=== PATIENT | male | born 1950 | race Caucasian/White ===

== ENCOUNTER 2018-04-16 09:31 | Emergency (ER) | payer OTHER ==
--- OUTSIDE RECORDS SUMMARY | 2018-04-16 09:33 | XMS REPORT ---
:1950 Author Organization [employer] Care Team Providers Name Role Phone Lux Mejia Provider Role Unavailable Allergies, Adverse Reactions, Alerts Substance Reaction Event Type N.K.D.A. 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 63910610050 425 MG Oral Active TAKE ONE ER CAPSULE BY MOUTH EVERY [address] [facility] 27577795123 5 MG Oral Active TAKE 1 Besylate TABLET EVERY DAY IN AFTERNOON Atorvastatin [facility] 55282137657 10 MG Oral Active TAKE 1 Calcium TABLET BY MOUTH EVERY DAY Pradaxa [facility] 41652044968 150 MG Oral Active TAKE ONE CAPSULE BY MOUTH TWICE A DAY Duloxetine HCl [facility] 15984938546 30 MG Oral Active TAKE 1 CAPSULE BY MOUTH TWICE A DAY Metoprolol [facility] 21604903114 25 MG Oral Active TAKE 1 Tartrate TABLET BY MOUTH TWICE A DAY Results No Known Results Summary Purpose e[employer]Works Submission
--- NOTE | 2018-04-16 10:53 | EDPHYS ---
Physician Documentation [facility] Name: Jani Taylor III Age: 67 yrs Sex: Male : 1950 Arrival Date: 04/16/2018 Time: 09:33 Bed 15 Private MD: Isidoro Helton C ED Physician Shmuel Ware HPI: 04/16 10:17 This 67 yrs old Male presents to ER via Ambulatory with complaints of Eye kdr Problem. 10:17 The patient is experiencing floaters. Onset: The symptoms/episode began/occurred last kdr night. Duration: the symptoms are intermittent, are episodic. Aggravated by Movement. Associated signs and symptoms: Pertinent positives: None. Pertinent negatives: chills, dizziness, ear ache, fever, headache, runny nose. Patient wears glasses. Severity of symptoms: At their worst the symptoms were mild in the emergency department the symptoms are unchanged. The patient has not experienced similar symptoms in the past. The patient has not recently seen a physician. Historical: - Allergies: 09:41 No Known Allergies; rb1 - Home Meds: 09:41 atorvastatin 10 mg oral tab 1 tab once daily [Active]; metoprolol tartrate 25 mg Oral rb1 tab 1 tab 2 times per day [Active]; imipramine HCl 25 mg Oral tab 2 tabs bedtime [Active]; propafenone 425 mg Oral cp12 1 cap 2 times per day [Active]; Pradaxa 150 mg oral cap 1 cap 2 times per day [Active]; amlodipine 5 mg tab 1 tab once daily [Active]; duloxetine 30 mg oral cpDR 1 cap once daily [Active]; Vitamin B-12 Oral [Active]; Vitamin D3 oral oral [Active]; Melatonin 7 mg Oral nightly [Active]; - PMHx: 09:41 High Cholesterol; Hypertension; rb1 - PSHx: 09:41 Bunionectomy; Mutliple orthopedic surgeries as child; wisdom teeth; rb1 - Immunization history:: Adult Immunizations up to date. - Social history:: Smoking status: Patient/guardian denies using tobacco. - Ebola Screening: : Patient negative for fever greater than or equal to 101.5 degrees Fahrenheit, and additional compatible Ebola Virus Disease symptoms. ROS: 10:17 Constitutional: Negative for fever, chills, and weight loss, ENT: Negative for injury, kdr pain, and discharge, Neck: Negative for injury, pain, and swelling, Neuro: Negative for headache, weakness, numbness, tingling, and seizure activity. Exam: 10:17 Constitutional: This is a well developed, well nourished patient who is awake, alert, kdr and in no acute distress. Head/Face: Normocephalic, atraumatic. Neck: Trachea midline, no thyromegaly or masses palpated, and no cervical lymphadenopathy. Supple, full range of motion without nuchal rigidity, or vertebral point tenderness. No Meningismus. 10:17 Eyes: Periorbital structures: appear normal, Pupils: equal, round, and reactive to light and accomodation, Extraocular movements: intact throughout, Corneas: are normal, Sclera: no appreciated abnormality, Anterior chamber: normal, Lids and lashes: appear normal, Visual hill: are intact. Vital Signs: 09:41 BP 124 / 77; Pulse 62; Resp 16; Temp 98.1(O); Pulse Ox 98% on R/A; Weight 86.18 kg; rb1 Height 5 ft. 10 in. (177.80 cm) (R); Pain 0/10; 10:40 BP 129 / 72; Pulse 67; Resp 17; Pulse Ox 100% on R/A; rb1 09:41 Body Mass Index 27.26 (86.18 kg, 177.80 cm) rb1 Visual Acuity: 10:19 Left Eye Visual acuity 20/25, Pupil size 3 mm, Normal; Right Eye Visual acuity 20/20, rb1 Pupil size 3 mm, Normal; Both Eyes Visual acuity 20/25; With Lenses; MDM: 10:17 ED course: By US, the patient may have retinal detachment in the OS. ED course: Called [facility] Dr. Salas twice with NA/ LM x 1 at 10:15. D/w Dr. Tai Wolfe, patient condition is urgent but not emergent per Dr. Gerardo. Could be seen in clinic on Wednesday. [facility]: OD 20/20; OS 20/25 corrected. 10:49 Data reviewed: vital signs, nurses notes. Counseling: I had a detailed discussion with kdr the patient and/or guardian regarding: the historical points, exam findings, and any diagnostic results supporting the discharge/admit diagnosis, the need for outpatient follow up. ED course: D/w Dr. Thompson: CHUN Hernandez: Non-emergent can follow-up in clinic unless and significant changes indicative of retinal detachment. Gave his contact information: [phone], [id number]. 10:53 Patient medically screened. kdr Administered Medications: No medications were administered Disposition: 04/16/18 10:53 Discharged to Home. Impression: Other retinal disorders, Other specified retinal disorders, Unspecified retinal disorder. - Condition is Stable. - Discharge Instructions: Retinal Detachment. - Medication Reconciliation Form, Thank You Letter form. - Follow up: Isidoro Helton MD; When: 2 - 3 days; Reason: If symptoms return, Further diagnostic work-up, Recheck today's complaints, Continuance of care, Re-evaluation by your physician. Follow up: Juana Salas MD; When: 1 - 2 days; Reason: If symptoms return, Further diagnostic work-up, Recheck today's complaints, Continuance of care, Re-evaluation by your physician. - Problem is new. - Symptoms are unchanged. Signatures: Shmuel Ware MD MD kdr Екатерина Corbett RN RN rb1 Corrections: (The following items were deleted from the chart) 11:09 10:53 04/16/2018 10:53 Discharged to Home. Impression: Other retinal disorders; Other rb1 specified retinal disorders; Unspecified retinal disorder. Condition is Stable. Forms are Medication Reconciliation Form, Thank You Letter, Antibiotic Education, Prescription Opioid Use. Follow up: Isidoro Helton; When: 2 - 3 days; Reason: If symptoms return, Further diagnostic work-up, Recheck today's complaints, Continuance of care, Re-evaluation by your physician. Follow up: Juana Salas; When: 1 - 2 days; Reason: If symptoms return, Further diagnostic work-up, Recheck today's complaints, Continuance of care, Re-evaluation by your physician. Problem is new. Symptoms are unchanged. kdr
--- NOTE | 2018-04-16 10:53 | ER ---
Nurse's Notes [facility] Name: Jani Taylor III Age: 67 yrs Sex: Male : 1950 Arrival Date: 04/16/2018 Time: 09:33 Bed 15 Private MD: Isidoro Helton C Diagnosis: Other retinal disorders;Other specified retinal disorders;Unspecified retinal disorder Presentation: 04/16 09:41 Presenting complaint: Patient states: Last night pt. noticed a floater in his left eye rb1 and is concerned that he may have a torn retina. Transition of care: patient was not received from another setting of care. Onset of symptoms was April 15, 2018. Risk Assessment: Do you want to hurt yourself or someone else? Patient reports no desire to harm self or others. Initial Sepsis Screen: Does the patient meet any 2 criteria? No. Patient's initial sepsis screen is negative. Does the patient have a suspected source of infection? No. Patient's initial sepsis screen is negative. Care prior to arrival: None. 09:41 Method Of Arrival: Ambulatory rb1 09:41 Acuity: KYLE 3 rb1 Triage Assessment: 09:41 General: Appears in no apparent distress. comfortable, Behavior is calm, cooperative, rb1 Denies fever, feeling ill. Pain: Denies pain. EENT: Eyes pt. complains of a floater in the left eye, no discharge noted.. Denies pain vision loss.. Neuro: Level of Consciousness is awake, alert, obeys commands, Oriented to person, place, time, situation. Cardiovascular: Capillary refill < 3 seconds is brisk in bilateral fingers. Respiratory: Airway is patent Respiratory effort is even, unlabored, Respiratory pattern is regular, symmetrical. GI: No signs and/or symptoms were reported involving the gastrointestinal system. : No signs and/or symptoms were reported regarding the genitourinary system. Derm: Skin is pink, warm \T\ dry. Musculoskeletal: Range of motion: intact in all extremities. Historical: - Allergies: : No Known Allergies; rb1 - Home Meds: : atorvastatin 10 mg oral tab 1 tab once daily [Active]; metoprolol tartrate 25 mg Oral rb1 tab 1 tab 2 times per day [Active]; imipramine HCl 25 mg Oral tab 2 tabs bedtime [Active]; propafenone 425 mg Oral cp12 1 cap 2 times per day [Active]; Pradaxa 150 mg oral cap 1 cap 2 times per day [Active]; amlodipine 5 mg tab 1 tab once daily [Active]; duloxetine 30 mg oral cpDR 1 cap once daily [Active]; Vitamin B-12 Oral [Active]; Vitamin D3 oral oral [Active]; Melatonin 7 mg Oral nightly [Active]; - PMHx: 09:41 High Cholesterol; Hypertension; rb1 - PSHx: :41 Bunionectomy; Mutliple orthopedic surgeries as child; wisdom teeth; rb1 - Immunization history:: Adult Immunizations up to date. - Social history:: Smoking status: Patient/guardian denies using tobacco. - Ebola Screening: : Patient negative for fever greater than or equal to 101.5 degrees Fahrenheit, and additional compatible Ebola Virus Disease symptoms. Screenin: Abuse screen: Denies threats or abuse. Nutritional screening: No deficits noted. rb1 Tuberculosis screening: No symptoms or risk factors identified. Fall Risk None identified. Assessment: : General: See triage assessment. rb1 10:40 Reassessment: Patient appears in no apparent distress at this time. No changes from rb1 previously documented assessment. Vital Signs: 09: BP 124 / 77; Pulse 62; Resp 16; Temp 98.1(O); Pulse Ox 98% on R/A; Weight 86.18 kg; rb1 Height 5 ft. 10 in. (177.80 cm) (R); Pain 0/10; 10:40 BP 129 / 72; Pulse 67; Resp 17; Pulse Ox 100% on R/A; rb1 09:41 Body Mass Index 27.26 (86.18 kg, 177.80 cm) rb1 Visual Acuity: 10:19 Left Eye Visual acuity 20/25, Pupil size 3 mm, Normal; Right Eye Visual acuity 20/20, rb1 Pupil size 3 mm, Normal; Both Eyes Visual acuity 20/25; With Lenses; ED Course: Patient arrived in ED. as : Isidoro Helton MD is Private Physician. as : Екатерина Corbett, ASHVIN is Primary Nurse. rb1 09: Arm band placed on right wrist. rb1 : Patient has correct armband on for positive identification. Bed in low position. Call rb1 light in reach. Side rails up X 1. Pulse ox on. NIBP on. Warm blanket given. 09:42 Shmuel Ware MD is Attending Physician. kdr 10:03 Triage completed. rb1 10:51 Isidoro Helton MD is Referral Physician. kdr 10:52 Juana Salas MD is Referral Physician. kdr 11:09 No provider procedures requiring assistance completed. Patient did not have IV access rb1 during this emergency room visit. Administered Medications: No medications were administered Outcome: 10:53 Discharge ordered by . kdr 11:09 Patient left the ED. rb1 11:09 Discharged to home ambulatory. rb1 11:09 Condition: stable 11:09 Discharge instructions given to patient, Instructed on discharge instructions, follow up and referral plans. Demonstrated understanding of instructions, follow-up care, Prescriptions given X none Signatures: Shmuel Ware MD MD kdr Guillermina Hennessy Rebecca, RN RN rb1 Corrections: (The following items were deleted from the chart) 10:38 09:41 BP 124 / 77; Pulse 62bpm; Resp 16bpm; Pulse Ox 98% RA; 86.18 kg; Height 5 ft. 10 rb1 in. Reported; BMI: 27.2; Pain 0/10; rb1
[2018-04-16 11:14] VITALS: BP 124/77; TEMP 98.1; O2SAT 98
== END 2018-04-16 11:09 | disposition home or self-care (01) ==
LOC: ER 09:31
DX: H35.89 Other specified retinal disorders (principal); I10 Essential (primary) hypertension; E78.00 Pure hypercholesterolemia, unspecified
CPT/HCPCS: 99283

== ENCOUNTER 2022-08-30 16:41 | Inpatient (IN) | payer OTHER ==
--- OUTSIDE RECORDS SUMMARY | 2022-08-30 16:48 | XMS REPORT | Continuity of Care Document ---
:1950 Author Organization [facility] t Address [address] [place] [address] Care Team Providers Name Role Phone Gabo Helton Primary Care Physician Gabo Helton Attending Clinician Unavailable PATY BARAJAS Attending Clinician Unavailable Johnson Delgado MD Attending Clinician Dillon Attending Clinician Unavailable Shaun Hastings Attending Clinician Unavailable JOHNSON DELGADO Attending Clinician Unavailable JOHNSON DELGADO Attending Clinician Unavailable Doctor Unassigned, [place] Attending Clinician Unavailable KELSEY SIMPSON Attending Clinician Unavailable FRANKLYN MEEHAN M.D. Attending Clinician Unavailable Dillon Admitting Clinician Unavailable Shaun Hastnigs Admitting Clinician Unavailable Payers Payer Name Policy Type Policy Number Effective Date Expiration Date S alfonso [employer]ET[employer] MANAGED [id number] 2021 MEDICARE PPO-TRACI 00:00:00 [employer]ETNA (MEDICARE [id number] 2022 REPLACEMENT PPO) 00:00:00 [employer]ET[employer] MEDICARE C1 [id number] Common PPO [facility] Problems Condition Condition Condition Status Onset Resolution Last Treating Co mments Source Name Details Category Date Date Treatment Clinician Date Metatarsal Metatarsal Problem Active A zalea [facility] of 1-20 Orthope left foot Left Foot 00:00: dic 00 Sports Medic[facility] Talipes Talipes Problem Active Samantha planus Planus 1-20 Orthope 00:00: dic 00 Sports Medicin e 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 00:00: dic valgus Valgus 00 Sports Medicin e Exostosis Exostosis Problem Active Aza júnior of right of Right 1-20 Orthop e foot Foot 00:00: dic 00 Sports Medicin e 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 Allergies, Adverse Reactions, Alerts Allergy Allergy Status Severity Reaction(s) Onset Inactive Treating Comm ents Source Name Type Date Date Clinician No Known DA Active U 2017-06 [facility] Allergie 06-16 [place] [facility] 00:[facility]: L[place] 00 [facility] No Known DA Active U 2017-06 [facility] Allergie 06-16 [place] [facility] 00:[facility]: [facility] 00 [facility] NO KNOWN Drug Active Univers ALLERGIE Class ity of S [facility] Non-ster Non-ster Active Unknown Commo n oidal oidal Spirit anti-inf anti-inf - [facility] lammator lammator y agent y agent [facility] aluminum aluminum Active Unknown Commo n aspirin aspirin [facility] Social History Social Habit Start Date Stop Date Quantity Comments Source History of Common [facility] - Tobacco Use [facility] Sex Assigned At Common Sp tony - [facility] History SDOH University o f Alcohol Frequency [place] [facility] History SDOH University o f Alcohol Std [place] [facility] Drinks Branch History SDOH University o f Alcohol Binge [place] [facility] al [facility] Exposure to 2022-06-05 2022-06-15 Not sure University of SARS-CoV-2 00:00:00 09:03:00 [place] [facility] (event) Branch Alcohol intake 2022-01-21 2022-01-21 Current drinker Unive rsity of 00:00:00 00:00:00 of alcohol [place] [facility] (finding) Branch Alcohol Comment 2018-11-04 2018-11-04 Occasional Universit y of 00:00:00 00:00:00 Drinker [facility] Tobacco use and 2017-11-22 2017-11-22 Smokeless tobacco Un iversity of exposure 00:00:00 00:00:00 non-user [facility] Smoking Status Start Date Stop Date Source Former Smoker Samantha easley [facility] Medications Ordered Filled Start Stop Current Ordering Indication Dosage Frequency Signature Comments Components Source Medication Medication Date Date Medication? Clinician (SIG) Name Name TRAZODONE Yes [id number] TAKE 1 U nivers 50 mg 3-07 TABLET BY ity of tablet 00:00: MOUTH [place] 00 EVERYDAY Medical AT BEDTIME Branch TRAZODONE Yes [id number] TAKE 1 U nivers 50 mg 3-07 TABLET BY ity of tablet 00:00: MOUTH [place] EVERYDAY Medical AT BEDTIME Branch TRAZODONE 0 Yes [id number] TAKE 1 U nivers 50 mg 3-07 TABLET BY ity of tablet 00:00: MOUTH [place] 00 EVERYDAY Medical AT BEDTIME Branch traZODone 2021-06 Yes [id number] 50mg Take 1 U nivers 50 mg 2-07 tablet by ity of tablet 00:00: mouth at [place] [address] bedtime. Medical Branch traZODone 2021-06 Yes [id number] 50mg Take 1 U nivers 50 mg 2-07 tablet by ity of tablet 00:00: mouth at [place] [address] bedtime. Medical Branch traZODone 2021-06 Yes [id number] 50mg Take 1 U nivers 50 mg 2-07 tablet by ity of tablet 00:00: mouth at [place] 00 bedtime. Medical Branch traZODone 2021-06 Yes [id number] 50mg Take 1 U nivers 50 mg 2-07 tablet by ity of tablet 00:00: mouth at [place] 00 bedtime. Medical Branch traZODone 2021-06 Yes [id number] 50mg Take 1 U nivers 50 mg 2-07 tablet by ity of tablet 00:00: mouth at [place] 00 bedtime. Medical Branch traZODone 2021-06 2023- No [id number] 50mg Take 1 Univers 50 mg 2-07 03-07 tablet by ity of tablet 00:00: 00:00 mouth at [place] 00 :00 bedtime. Medical Branch DENTAGEL 2021-06 Yes APPLY TO Unive rs 1.1 % Gel 2-04 TOOTHBRUSH ity of 00:00: & BRUSH [place] 00 NIGHTLY. Medical DO NOT EAT Branch OR DRINK FOR 30 MINUTES AFTERWARDS finasteride 2021-06 Yes 5mg Take 5 mg U nivers 5 mg tablet 2-04 by mouth ity of 00:00: in the [place] morning. Medical Branch DENTAGEL 2021-06 Yes APPLY TO Unive rs 1.1 % Gel 2-04 TOOTHBRUSH ity of 00:00: & BRUSH [place] 00 NIGHTLY. Medical DO NOT EAT Branch OR DRINK FOR 30 MINUTES AFTERWARDS finasteride 2021-06 Yes 5mg Take 5 mg U nivers 5 mg tablet 2-04 by mouth ity of 00:00: in the [place] morning. Medical Branch DENTAGEL 2021-06 Yes APPLY TO Unive rs 1.1 % Gel 2-04 TOOTHBRUSH ity of 00:00: & BRUSH [place] 00 NIGHTLY. Medical DO NOT EAT Branch OR DRINK FOR 30 MINUTES AFTERWARDS finasteride 2021-06 Yes 5mg Take 5 mg U nivers 5 mg tablet 2-04 by mouth ity of 00:00: in the morning. Medical Branch DENTAGEL 2021-06 Yes APPLY TO Unive rs 1.1 % Gel 2-04 TOOTHBRUSH ity of 00:00: & BRUSH [place] 00 NIGHTLY. Medical DO NOT EAT Branch OR DRINK FOR 30 MINUTES AFTERWARDS finasteride 2021-06 Yes 5mg Take 5 mg U nivers 5 mg tablet 2-04 by mouth ity of 00:00: in the [place] morning. Medical Branch DENTAGEL 2021-06 Yes APPLY TO Unive rs 1.1 % Gel 2-04 TOOTHBRUSH ity of 00:00: & BRUSH [place] 00 NIGHTLY. Medical DO NOT EAT Branch OR DRINK FOR 30 MINUTES AFTERWARDS finasteride 2021-06 Yes 5mg Take 5 mg U nivers 5 mg tablet 2-04 by mouth ity of 00:00: in the [place] 00 morning. Medical Branch DENTAGEL 2021-06 Yes APPLY TO Unive rs 1.1 % Gel 2-04 TOOTHBRUSH ity of 00:00: & BRUSH [place] 00 NIGHTLY. Medical DO NOT EAT Branch OR DRINK FOR 30 MINUTES AFTERWARDS finasteride 2021-06 Yes 5mg Take 5 mg U nivers 5 mg tablet 2-04 by mouth ity of 00:00: in the [place] morning. Medical Branch DULoxetine Yes [id number] 30mg Take 1 Univers 30 mg 8-09 capsule by ity of capsule 00:00: mouth in [place] the Medical morning Branch and 1 capsule in the evening. rivastigmin 2021- Yes [id number] 1{patch Apply 1 Univers e 9.5 mg/24 8-09 } Patch to ity of hour patch 00:00: skin in [place] [address] the morning. Branch DULoxetine 2021- Yes [id number] 30mg Take 1 Univers 30 mg 8-09 capsule by ity of capsule 00:00: mouth in [place] the Medical morning Branch and 1 capsule in the evening. rivastigmin 2021-0 Yes [id number] 1{patch Apply 1 Univers e 9.5 mg/24 8-09 } Patch to ity of hour patch 00:00: skin in [facility] 00 the morning. Branch DULoxetine 2021- Yes [id number] 30mg Take 1 Univers 30 mg 8-09 capsule by ity of capsule 00:00: mouth in [place] the Medical morning Branch and 1 capsule in the evening. rivastigmin 2021-0 Yes [id number] 1{patch Apply 1 Univers e 9.5 mg/24 8-09 } Patch to ity of hour patch 00:00: skin in [place] [address] the morning. Branch DULoxetine 2021- Yes [id number] 30mg Take 1 Univers 30 mg 8-09 capsule by ity of capsule 00:00: mouth in [place] the Medical morning Branch and 1 capsule in the evening. rivastigmin 2-0 Yes [id number] 1{patch Apply 1 Univers e 9.5 mg/24 8-09 } Patch to ity of hour patch 00:00: skin in [place] [address] the morning. Branch DULoxetine 2021-0 Yes [id number] 30mg Take 1 Univers 30 mg 8-09 capsule by ity of capsule 00:00: mouth in [place] [address] the morning Branch and 1 capsule in the evening. rivastigmin 2-0 Yes [id number] 1{patch Apply 1 Univers e 9.5 mg/24 8-09 } Patch to ity of hour patch 00:00: skin in [place] [address] the morning. Branch DULoxetine 2021-0 Yes [id number] 30mg Take 1 Univers 30 mg 8-09 capsule by ity of capsule 00:00: mouth in [place] [address] the Branch and 1 capsule in the evening. rivastigmin 2021-0 Yes [id number] 1{patch Apply 1 Univers e 9.5 mg/24 8-09 } Patch to ity of hour patch 00:00: skin in [place] [address] the . Branch DULoxetine 2021-0 Yes [id number] 30mg Take 1 Univers 30 mg 8-09 capsule by ity of capsule 00:00: mouth in [place] [address] the morning Branch and 1 capsule in the evening. rivastigmin 2021-0 Yes [id number] 1{patch Apply 1 Univers e 9.5 mg/24 8-09 } Patch to ity of hour patch 00:00: skin in [place] [address] the . Branch DULoxetine 2021-0 Yes [id number] 30mg Take 1 Univers 30 mg 8-09 capsule by ity of capsule 00:00: mouth in [place] [address] the morning Branch and 1 capsule in the evening. rivastigmin 2-0 Yes [id number] 1{patch Apply 1 Univers e 9.5 mg/24 8-09 } Patch to ity of hour patch 00:00: skin in [place] [address] the morning. Branch DULoxetine 2021-0 Yes [id number] 30mg Take 1 Univers 30 mg 8-09 capsule by ity of capsule 00:00: mouth in [place] [address] the morning Branch and 1 capsule in the evening. rivastigmin 2-0 Yes [id number] 1{patch Apply 1 Univers e 9.5 mg/24 8 } Patch to ity of hour patch 00:00: [place] 00 the Medical morning. Branch RIVASTIGMIN 2021- No 1{patch APPLY 1 Univers E 9.5 mg/24 10-08 0809 } PATCH TO ity of hour patch 00:00: 00:00 SKIN [place] 00 :00 DAILY. Medical Branch DULOXETINE 2021- No [id number] TAKE 1 Univers 30 mg 3-17 08- CAPSULE BY ity of capsule 00:00: 00:00 MOUTH [place] 00 :00 TWICE A Medical DAY Branch TRAZODONE 2020-06 Yes [id number] TAKE 1 U nivers 50 mg 2-14 TABLET BY ity of tablet 00:00: MOUTH [place] 00 EVERYDAY Medical AT BEDTIME Branch TRAZODONE 2020-06- No [id number] TAKE 1 Univers 50 mg 2-14 12-07 TABLET BY ity of tablet 00:00: 00:00 MOUTH [place] 00 :00 EVERYDAY Medical AT BEDTIME Branch Bupivicaine Bupivicaine 2020-06 No 2.5mg Common [place] 0-05 [facility] No 40mg Common (Triamcinol (Triamcinol 0-05 S pirit one) one) 00:00: - [facility] Bupivicaine Bupivicaine 2020-06 No Common [place] Aurora 0-05 Spirit [facility]06 No 40mg Common (Triamcinol (Triamcinol 0-05 S pirit one) one) 00:00: - [facility] Bupivicaine Bupivicaine 2020-06 No 2.5mg Common [place] Aurora 0-05 Spirit 00:00: - [facility] Kenalog Kenalog 2020-06 No 40mg Common (Triamcinol (Triamcinol 0-05 S pirit one) one) 00:00: - [facility] Bupivicaine Bupivicaine 2020-06 No 2.5mg Common [place] Aurora 0-05 Spirit 00:00: - [facility] Kenalog Kenalog 2020-06 No 40mg Common (Triamcinol (Triamcinol 0-05 S pirit one) one) 00:00: - [facility] melatonin 2019-0 Yes Take 1 Univer s 10 mg Tab 5-12 TAB-CAP/M2 ity of 11:41: by mouth [place] 08 at bedtime Medical as needed. Branch melatonin 0 Yes Take 1 Univer s 10 mg Tab 5-12 TAB-CAP/M2 ity of 11:41: by mouth [place] 08 at bedtime Medical as needed. Branch melatonin 0 Yes Take 1 Univer s 10 mg Tab 5-12 TAB-CAP/M2 ity of 11:41: by mouth [place] 08 at bedtime Medical as needed. Branch melatonin Yes Take 1 Univer s 10 mg Tab 5-12 TAB-CAP/M2 ity of 11:41: by mouth [place] 08 at bedtime Medical as needed. Branch melatonin Yes Take 1 Univer s 10 mg Tab 5-12 TAB-CAP/M2 ity of 11:41: by mouth [place] 08 at bedtime Medical as needed. Branch melatonin Yes Take 1 Univer s 10 mg Tab 5-12 TAB-CAP/M2 ity of 11:41: by mouth [place] 08 at bedtime Medical as needed. Branch melatonin 0 Yes Take 1 Univer s 10 mg Tab 5-12 TAB-CAP/M2 ity of 11:41: by mouth [place] 08 at bedtime Medical as needed. Branch melatonin Yes Take 1 Univer s 10 mg Tab 5-12 TAB-CAP/M2 ity of 11:41: by mouth [place] 08 at bedtime Medical as needed. Branch melatonin 0 Yes Take 1 Univer s 10 mg Tab 5-12 TAB-CAP/M2 ity of 11:41: by mouth [place] 08 at bedtime Medical as needed. Branch metoprolol 2018-06 Yes 25mg Take 25 mg U nivers tartrate 25 1-11 by mouth 2 it y of mg tablet 11:49: (two) [place] 58 times Medical daily. Branch PROPAFENONE 2018-06 Yes 425mg Take 425 U nivers HCL 1-11 mg by ity of (PROPAFENON 11:49: mouth [place] E ORAL) 58 every 12 Medical (twelve) Branch hours. cyanocobala 2018-06 Yes 1{tbl} Place 1 U nivers min, 1-11 tablet ity of vitamin 11:49: under the [place] B-12, 58 tongue Medical (VITAMIN daily. [place] [address]) 5,000 mcg Subl dextrose-vi 2018-06 Yes 1{tbl} Take 1 Un [place] tamin D3 1-11 tablet by ity of 15-400 11:49: mouth [place] gram-unit/4 58 daily. Medica l 2 mL Gel Branch ferrous 2018-06 Yes 1{tbl} Take 1 Univer s fumarate/vi 1-11 tablet by ity of t Bcomp,C 11:49: mouth [place] (SUPER B 58 daily. Medical COMPLEX Branch ORAL) metoprolol 2018-06 Yes 25mg Take 25 mg U nivers tartrate 25 1-11 by mouth 2 it y of mg tablet 11:49: (two) [place] 58 times Medical daily. Branch PROPAFENONE 2018-06 Yes 425mg Take 425 U nivers HCL 1-11 mg by ity of (PROPAFENON 11:49: mouth [place] E ORAL) 58 every 12 Medical (twelve) Branch hours. cyanocobala 2018-06 Yes 1{tbl} Place 1 U nivers min, 1-11 tablet ity of vitamin 11:49: under the , 58 tongue Medical (VITAMIN daily. [place] [address]) 5,000 mcg Subl dextrose-vi 2018-06 Yes 1{tbl} Take 1 Un [place] tamin D3 1-11 tablet by ity of 15-400 11:49: mouth [place] gram-unit/4 58 daily. Medica l 2 mL Gel Branch ferrous 2018-06 Yes 1{tbl} Take 1 Univer s fumarate/vi 1-11 tablet by ity of t Bcomp,C 11:49: mouth [place] (SUPER B 58 daily. Medical COMPLEX Branch ORAL) metoprolol 2018-06 Yes 25mg Take 25 mg U nivers tartrate 25 1-11 by mouth 2 it y of mg tablet 11:49: (two) [place] 58 times Medical daily. Branch PROPAFENONE 2018-06 Yes 425mg Take 425 U nivers HCL 1-11 mg by ity of (PROPAFENON 11:49: mouth [place] E ORAL) 58 every 12 Medical (twelve) Branch hours. cyanocobala 2018-06 Yes 1{tbl} Place 1 U nivers min, 1-11 tablet ity of vitamin 11:49: under the [place] B-12, 58 tongue Medical (VITAMIN daily. [place] [address]) 5,000 mcg Subl dextrose-vi 2018-06 Yes 1{tbl} Take 1 Un [place] tamin D3 1-11 tablet by ity of 15-400 11:49: mouth [place] gram-unit/4 58 daily. Medica l 2 mL Gel Branch ferrous 2018-06 Yes 1{tbl} Take 1 Univer s fumarate/vi 1-11 tablet by ity of t AnantC 11:49: mouth [place] (SUPER B 58 daily. Medical COMPLEX Branch ORAL) metoprolol 2018-06 Yes 25mg Take 25 mg U nivers tartrate 25 1-11 by mouth 2 it y of mg tablet 11:49: (two) [place] 58 times Medical daily. Branch PROPAFENONE 2018-06 Yes 425mg Take 425 U nivers HCL 1-11 mg by ity of (PROPAFENON 11:49: mouth [place] E ORAL) 58 every 12 Medical (twelve) Branch hours. cyanocobala 2018-06 Yes 1{tbl} Place 1 U nivers min, 1-11 tablet ity of vitamin 11:49: under the [place] B-12, 58 tongue Medical (VITAMIN daily. [place] [address]) 5,000 mcg Subl dextrose-vi 2018-06 Yes 1{tbl} Take 1 Un [place] tamin D3 1-11 tablet by ity of 15-400 11:49: mouth [place] gram-unit/4 58 daily. Medica l 2 mL Gel Branch ferrous 2018-06 Yes 1{tbl} Take 1 Univer s fumarate/vi 1-11 tablet by ity of vincent NyC 11:49: mouth [place] (SUPER B 58 daily. Medical COMPLEX Branch ORAL) metoprolol 2018-06 Yes 25mg Take 25 mg U nivers tartrate 25 1-11 by mouth 2 it y of mg tablet 11:49: (two) [place] 58 times Medical daily. Branch PROPAFENONE 2018-06 Yes 425mg Take 425 U nivers HCL 1-11 mg by ity of (PROPAFENON 11:49: mouth [place] E ORAL) 58 every 12 Medical (twelve) Branch hours. cyanocobala 2018-06 Yes 1{tbl} Place 1 U nivers min, 1-11 tablet ity of vitamin 11:49: under the tongue Medical (VITAMIN daily. [place] [address]) 5,000 mcg Subl dextrose-vi 2018-06 Yes 1{tbl} Take 1 Un [place] tamin D3 1-11 tablet by ity of 15-400 11:49: mouth [place] gram-unit/4 58 daily. Medica l 2 mL Gel Branch ferrous 2018-06 Yes 1{tbl} Take 1 Univer s fumarate/vi 1-11 tablet by ity of t AnantC 11:49: mouth [place] (SUPER B 58 daily. Medical COMPLEX Branch ORAL) metoprolol 2018-06 Yes 25mg Take 25 mg U nivers tartrate 25 1-11 by mouth 2 it y of mg tablet 11:49: (two) [place] 58 times Medical daily. Branch PROPAFENONE 2018-06 Yes 425mg Take 425 U nivers HCL 1-11 mg by ity of (PROPAFENON 11:49: mouth [place] E ORAL) 58 every 12 Medical (twelve) Branch hours. cyanocobala 2018-06 Yes 1{tbl} Place 1 U nivers min, 1-11 tablet ity of vitamin 11:49: under the tongue Medical (VITAMIN daily. [place] [address]) 5,000 mcg Subl dextrose-vi 2018-06 Yes 1{tbl} Take 1 Un [place] tamin D3 1-11 tablet by ity of 15-400 11:49: mouth [place] gram-unit/4 58 daily. Medica l 2 mL Gel Branch ferrous 2018-06 Yes 1{tbl} Take 1 Univer s fumarate/vi 1-11 tablet by ity of vincent NyC 11:49: mouth [place] (SUPER B 58 daily. Medical COMPLEX Branch ORAL) metoprolol 2018-06 Yes 25mg Take 25 mg U nivers tartrate 25 1-11 by mouth 2 it y of mg tablet 11:49: (two) [place] 58 times Medical daily. Branch PROPAFENONE 2018-06 Yes 425mg Take 425 U nivers HCL 1-11 mg by ity of (PROPAFENON 11:49: mouth [place] E ORAL) 58 every 12 Medical (twelve) Branch hours. cyanocobala 2018-06 Yes 1{tbl} Place 1 U nivers min, 1-11 tablet ity of vitamin 11:49: under the tongue Medical (VITAMIN daily. [place] [address]) 5,000 mcg Subl dextrose-vi 2018-06 Yes 1{tbl} Take 1 Un [place] tamin D3 1-11 tablet by ity of 15-400 11:49: mouth [place] gram-unit/4 58 daily. Medica l 2 mL Gel Branch ferrous 2018-06 Yes 1{tbl} Take 1 Univer s fumarate/vi 1-11 tablet by ity of t AnantC 11:49: mouth [place] (SUPER B 58 daily. Medical COMPLEX Branch ORAL) metoprolol 2018-06 Yes 25mg Take 25 mg U nivers tartrate 25 1-11 by mouth 2 it y of mg tablet 11:49: (two) [place] 58 times Medical daily. Branch PROPAFENONE 2018-06 Yes 425mg Take 425 U nivers HCL 1-11 mg by ity of (PROPAFENON 11:49: mouth [place] E ORAL) 58 every 12 Medical (twelve) Branch hours. cyanocobala 2018-06 Yes 1{tbl} Place 1 U nivers min, 1-11 tablet ity of vitamin 11:49: under the tongue Medical (VITAMIN daily. [place] [address]) 5,000 mcg Subl dextrose-vi 2018-06 Yes 1{tbl} Take 1 Un [place] tamin D3 1-11 tablet by ity of 15-400 11:49: mouth [place] gram-unit/4 58 daily. Medica l 2 mL Gel Branch ferrous 2018-06 Yes 1{tbl} Take 1 Univer s fumarate/vi 1-11 tablet by ity of vincent NyC 11:49: mouth [place] (SUPER B 58 daily. Medical COMPLEX Branch ORAL) metoprolol 2018-06 Yes 25mg Take 25 mg U nivers tartrate 25 1-11 by mouth 2 it y of mg tablet 11:49: (two) [place] 58 times Medical daily. Branch PROPAFENONE 2018-06 Yes 425mg Take 425 U nivers HCL 1-11 mg by ity of (PROPAFENON 11:49: mouth [place] E ORAL) 58 every 12 Medical (twelve) Branch hours. cyanocobala 2018-06 Yes 1{tbl} Place 1 U nivers min, 1-11 tablet ity of vitamin 11:49: under the tongue Medical (VITAMIN daily. Branch B-12) 5,000 mcg Subl dextrose-vi 2018-06 Yes 1{tbl} Take 1 Un [place] tamin D3 1-11 tablet by ity of 15-400 11:49: mouth [place] gram-unit/4 58 daily. Medica l 2 mL Gel Branch ferrous 2018-06 Yes 1{tbl} Take 1 Univer s fumarate/vi 1-11 tablet by ity of t Bcomp,C 11:49: mouth [place] (SUPER B 58 daily. Medical COMPLEX Branch ORAL) LINZESS 290 2018-06 Yes 1{capsu Take 1 U nivers mcg Cap 1-04 le} capsule by ity of 00:00: mouth [place] 00 daily. Medical Branch LINZESS 290 2018-06 Yes 1{capsu Take 1 U nivers mcg Cap 1-04 le} capsule by ity of 00:00: mouth [place] 00 daily. Medical Branch LINZESS 290 2018-06 Yes 1{capsu Take 1 U nivers mcg Cap 1-04 le} capsule by ity of 00:00: mouth [place] 00 daily. Medical Branch LINZESS 290 2018-06 Yes 1{capsu Take 1 U nivers mcg Cap 1-04 le} capsule by ity of 00:00: mouth [place] 00 daily. Medical Branch LINZESS 290 2018-06 Yes 1{capsu Take 1 U nivers mcg Cap 1-04 le} capsule by ity of 00:00: mouth [place] 00 daily. Medical Branch LINZESS 290 2018- Yes 1{capsu Take 1 U nivers mcg Cap 1-04 le} capsule by ity of 00:00: mouth [place] 00 daily. Medical Branch LINZESS 290 2018-06 Yes 1{capsu Take 1 U nivers mcg Cap 1-04 le} capsule by ity of 00:00: mouth [place] 00 daily. Medical Branch LINZESS 290 2018- Yes 1{capsu Take 1 U nivers mcg Cap 1-04 le} capsule by ity of 00:00: mouth [place] 00 daily. Medical Branch LINZESS 290 2018- Yes 1{capsu Take 1 U nivers mcg Cap 1-04 le} capsule by ity of 00:00: mouth [place] 00 daily. Medical Branch sildenafil 2018- Yes TAKE 1 Unive rs 100 mg 0-11 TABLET BY ity of tablet 00:00: MOUTH [place] 00 EVERY DAY Medical NEEDED Branch APPROXIMAT ASHLEY 1 HOUR BEFORE SEXUAL ACTIVITY sildenafil 2018-06 Yes TAKE 1 Unive rs 100 mg 0-11 TABLET BY ity of tablet 00:00: MOUTH EVERY DAY Medical NEEDED Branch APPROXIMAT ASHLEY 1 HOUR BEFORE SEXUAL ACTIVITY sildenafil 2018-06 Yes TAKE 1 Unive rs 100 mg 0-11 TABLET BY ity of tablet 00:00: MOUTH EVERY DAY Medical NEEDED Branch APPROXIMAT ASHLEY 1 HOUR BEFORE SEXUAL ACTIVITY sildenafil 2018-06 Yes TAKE 1 Unive rs 100 mg 0-11 TABLET BY ity of tablet 00:00: MOUTH EVERY DAY Medical NEEDED Branch APPROXIMAT ASHLEY 1 HOUR BEFORE SEXUAL ACTIVITY sildenafil 2018-06 Yes TAKE 1 Unive rs 100 mg 0-11 TABLET BY ity of tablet 00:00: MOUTH EVERY DAY Medical NEEDED Branch APPROXIMAT ASHLEY 1 HOUR BEFORE SEXUAL ACTIVITY sildenafil 2018-06 Yes TAKE 1 Unive rs 100 mg 0-11 TABLET BY ity of tablet 00:00: MOUTH EVERY DAY Medical NEEDED Branch APPROXIMAT ASHLEY 1 HOUR BEFORE SEXUAL ACTIVITY sildenafil 2018-06 Yes TAKE 1 Unive rs 100 mg 0-11 TABLET BY ity of tablet 00:00: MOUTH EVERY DAY Medical NEEDED Branch APPROXIMAT ASHLEY 1 HOUR BEFORE SEXUAL ACTIVITY sildenafil 2018-06 Yes TAKE 1 Unive rs 100 mg 0-11 TABLET BY ity of tablet 00:00: MOUTH 00 EVERY DAY Medical NEEDED Branch APPROXIMAT ASHLEY 1 HOUR BEFORE SEXUAL ACTIVITY sildenafil 2018-06 Yes TAKE 1 Unive rs 100 mg 0-11 TABLET BY ity of tablet 00:00: MOUTH EVERY DAY Medical NEEDED Branch APPROXIMAT ASHLEY 1 HOUR BEFORE SEXUAL ACTIVITY tamsulosin Yes TAKE 1 Unive rs 0.4 mg 24 6-18 CAPSULE BY ity of hr capsule 00:00: MOUTH 00 EVERY DAY Medical 30 MINUTES Branch AFTER A MEAL tamsulosin Yes TAKE 1 Unive rs 0.4 mg 24 6-18 CAPSULE BY ity of hr capsule 00:00: MOUTH 00 EVERY DAY Medical 30 MINUTES Branch AFTER A MEAL tamsulosin Yes TAKE 1 Unive rs 0.4 mg 24 6-18 CAPSULE BY ity of hr capsule 00:00: MOUTH EVERY DAY Medical 30 MINUTES Branch AFTER A MEAL tamsulosin Yes TAKE 1 Unive rs 0.4 mg 24 6-18 CAPSULE BY ity of hr capsule 00:00: MOUTH EVERY DAY Medical 30 MINUTES Branch AFTER A MEAL tamsulosin 2019-0 Yes TAKE 1 Unive rs 0.4 mg 24 6-18 CAPSULE BY ity of hr capsule 00:00: MOUTH EVERY DAY Medical 30 MINUTES Branch AFTER A MEAL tamsulosin 2019-0 Yes TAKE 1 Unive rs 0.4 mg 24 6-18 CAPSULE BY ity of hr capsule 00:00: MOUTH EVERY DAY Medical 30 MINUTES Branch AFTER A MEAL tamsulosin 2019-0 Yes TAKE 1 Unive rs 0.4 mg 24 6-18 CAPSULE BY ity of hr capsule 00:00: MOUTH EVERY DAY Medical 30 MINUTES Branch AFTER A MEAL tamsulosin 2019-0 Yes TAKE 1 Unive rs 0.4 mg 24 6-18 CAPSULE BY ity of hr capsule 00:00: MOUTH EVERY DAY Medical 30 MINUTES Branch AFTER A MEAL tamsulosin 2019-0 Yes TAKE 1 Unive rs 0.4 mg 24 6-18 CAPSULE BY ity of hr capsule 00:00: MOUTH EVERY DAY Medical 30 MINUTES Branch AFTER A MEAL amLODIPine 2018-0 Yes 5mg Take 5 mg Un [place] 5 mg tablet 4-20 by mouth ity of 00:00: daily. [place] [facility] amLODIPine 2018-0 Yes 5mg Take 5 mg Un [place] 5 mg tablet 4-20 by mouth ity of 00:00: daily. [place] [facility] amLODIPine 2018-0 Yes 5mg Take 5 mg [place] 5 mg tablet 4-20 by mouth ity of 00:00: daily. [place] [facility] amLODIPine 2018-0 Yes 5mg Take 5 mg [place] 5 mg tablet 4-20 by mouth ity of 00:00: daily. [place] [facility] amLODIPine 2018-0 Yes 5mg Take 5 mg [place] 5 mg tablet 4-20 by mouth ity of 00:00: daily. [place] [facility] amLODIPine 2018-0 Yes 5mg Take 5 mg [place] 5 mg tablet 4-20 by mouth ity of 00:00: daily. [place] [facility] amLODIPine 2018-0 Yes 5mg Take 5 mg [place] 5 mg tablet 4-20 by mouth ity of 00:00: daily. [place] [facility] amLODIPine 2018-0 Yes 5mg Take 5 mg [place] 5 mg tablet 4-20 by mouth ity of 00:00: daily. [facility] amLODIPine 2017-0 Yes 5mg Take 5 mg [place] 5 mg tablet 4-20 by mouth ity of 00:00: daily. [facility] atorvastati 0 Yes 10mg Take 10 mg Univers n 10 mg 4-19 by mouth ity of tablet 00:00: daily. [facility] atorvastati 0 Yes 10mg Take 10 mg Univers n 10 mg 4-19 by mouth ity of tablet 00:00: daily. [facility] atorvastati 0 Yes 10mg Take 10 mg Univers n 10 mg 4-19 by mouth ity of tablet 00:00: daily. [facility] atorvastati 0 Yes 10mg Take 10 mg Univers n 10 mg 4-19 by mouth ity of tablet 00:00: daily. [facility] atorvastati 0 Yes 10mg Take 10 mg Univers n 10 mg 4-19 by mouth ity of tablet 00:00: daily. [facility] atorvastati 0 Yes 10mg Take 10 mg Univers n 10 mg 4-19 by mouth ity of tablet 00:00: daily. [facility] atorvastati 0 Yes 10mg Take 10 mg Univers n 10 mg 4-19 by mouth ity of tablet 00:00: daily. [facility] atorvastati 0 Yes 10mg Take 10 mg Univers n 10 mg 4-19 by mouth ity of tablet 00:00: daily. [facility] atorvastati 0 Yes 10mg Take 10 mg Univers n 10 mg 4-19 by mouth ity of tablet 00:00: daily. [facility] PRADAXA 150 0 Yes TAKE ONE [place] mg capsule 4-06 CAPSULE BY ity of 00:00: MOUTH TWICE A Medical DAY Branch PRADAXA 150 0 Yes TAKE ONE [place] mg capsule 4-06 CAPSULE BY ity of 00:00: MOUTH TWICE A Medical DAY Branch PRADAXA 150 0 Yes TAKE ONE [place] mg capsule 4-06 CAPSULE BY ity of 00:00: MOUTH TWICE A Medical DAY Branch PRADAXA 150 0 Yes TAKE ONE [place] mg capsule 4-06 CAPSULE BY ity of 00:00: MOUTH [place] 00 TWICE A Medical DAY Branch PRADAXA 150 Yes TAKE ONE [place] mg capsule 4-06 CAPSULE BY ity of 00:00: MOUTH [place] 00 TWICE A Medical DAY Branch PRADAXA 150 Yes TAKE ONE [place] mg capsule 4-06 CAPSULE BY ity of 00:00: MOUTH [place] 00 TWICE A Medical DAY Branch PRADAXA 150 Yes TAKE ONE [place] mg capsule 4-06 CAPSULE BY ity of 00:00: MOUTH [place] 00 TWICE A Medical DAY Branch PRADAXA 150 Yes TAKE ONE [place] mg capsule 4-06 CAPSULE BY ity of 00:00: MOUTH [place] 00 TWICE A Medical DAY Branch PRADAXA 150 Yes TAKE ONE [place] mg capsule 4-06 CAPSULE BY ity of 00:00: MOUTH [place] 00 TWICE A Medical DAY Branch duloxetine duloxetine No duloxetine Samantha 30 mg 30 mg 30 mg [facility] capsule,del capsule,del capsule,de dic ayed ayed layed Sports release release release Medici n TAKE 1 TAKE 1 TAKE 1 e CAPSULE BY CAPSULE BY CAPSULE BY MOUTH IN MOUTH IN MOUTH IN THE MORNING THE MORNING THE AND 1 AND 1 MORNING CAPSULE IN CAPSULE IN AND 1 THE THE CAPSULE IN EVENING. EVENING. THE EVENING. enoxaparin enoxaparin No enoxaparin Samantha 80 mg/0.8 80 mg/0.8 80 mg/0.8 [facility] mL mL mL dic subcutaneou subcutaneou subcutaneo Sports s syringe s syringe us syringe Medicin INJECT 1 INJECT 1 INJECT 1 e SYRINGE BY SYRINGE BY SYRINGE BY SUBCUTANEOU SUBCUTANEOU SUBCUTANEO S ROUTE S ROUTE US ROUTE EVERY 12 EVERY 12 EVERY 12 HOURS HOURS HOURS finasteride finasteride No finasterid Samantha 5 mg tablet 5 mg tablet e 5 mg [facility] TAKE 1 TAKE 1 tablet dic TABLET BY TABLET BY TAKE 1 Spo rts MOUTH EVERY MOUTH EVERY TABLET BY Medicin DAY DAY MOUTH e EVERY DAY Jublia 10 % Jublia 10 % No Jublia 10 Samantha topical topical % topical Orth ope solution solution solution dic with with with Sports applicator applicator applicator Medicin APPLY A APPLY A APPLY A e SMALL SMALL SMALL AMOUNT VIA AMOUNT VIA AMOUNT VIA APPLICATOR APPLICATOR APPLICATOR EVERY NIGHT EVERY NIGHT EVERY TO TOENAILS TO TOENAILS NIGHT TO EVERY NIGHT EVERY NIGHT TOENAILS AT BEDTIME AT BEDTIME EVERY NIGHT AT BEDTIME Linzess 145 Linzess 145 No Linzess Samantha mcg capsule mcg capsule 145 mcg [facility] TAKE 1 TAKE 1 capsule dic CAPSULE BY CAPSULE BY TAKE 1 S ports MOUTH EVERY MOUTH EVERY CAPSULE BY Medicin DAY DAY MOUTH e EVERY DAY metoprolol metoprolol No metoprolol Samantha tartrate 25 tartrate 25 tartrate [facility] mg tablet mg tablet 25 mg dic TAKE 1 TAKE 1 tablet Sports TABLET BY TABLET BY TAKE 1 Med icin MOUTH TWICE MOUTH TWICE TABLET BY e A DAY A DAY MOUTH TWICE A DAY propafenone propafenone No propafenon Samantha ER 425 mg ER 425 mg e ER 425 O rthope capsule,ext capsule,ext mg d ic ended ended capsule,ex Sports release 12 release 12 tended M edicin hr TAKE 1 hr TAKE 1 release 12 e CAPSULE BY CAPSULE BY hr TAKE 1 MOUTH EVERY MOUTH EVERY CAPSULE BY 12 HOURS 12 HOURS MOUTH EVERY 12 HOURS rivastigmin rivastigmin No rivastigmi Samantha e 9.5 mg/24 e 9.5 mg/24 ne 9.5 [facility] hour hour mg/24 hour dic transdermal transdermal transderma Sports patch APPLY patch APPLY l patch Medicin 1 PATCH TO 1 PATCH TO APPLY 1 e SKIN IN THE SKIN IN THE PATCH TO MORNING. MORNING. SKIN IN THE MORNING. sildenafil sildenafil No sildenafil Samantha 100 mg 100 mg 100 mg [facility] tablet TAKE tablet TAKE tablet dic 1 TABLET BY 1 TABLET BY TAKE 1 Sports MOUTH EVERY MOUTH EVERY TABLET BY Medicin DAY DAY MOUTH e NEEDED NEEDED EVERY DAY ABOUT 1 ABOUT 1 NEEDED HOUR BEFORE HOUR BEFORE ABOUT 1 SEXUAL SEXUAL HOUR ACTIVITY ACTIVITY BEFORE SEXUAL ACTIVITY tamsulosin tamsulosin No tamsulosin Samantha 0.4 mg 0.4 mg 0.4 mg [facility] capsule capsule capsule dic TAKE 2 TAKE 2 TAKE 2 Sports CAPSULES BY CAPSULES BY CAPSULES Medicin MOUTH MOUTH BY MOUTH e DAILY, TAKE DAILY, TAKE DAILY, 30 MINUTES 30 MINUTES TAKE 30 AFTER MEAL AFTER MEAL MINUTES AFTER MEAL trazodone trazodone No trazodone Samantha 50 mg 50 mg 50 mg [facility] tablet TAKE tablet TAKE tablet dic 1 TABLET BY 1 TABLET BY TAKE 1 Sports MOUTH MOUTH TABLET BY Medicin EVERYDAY AT EVERYDAY AT MOUTH e BEDTIME BEDTIME EVERYDAY AT BEDTIME acetazolami acetazolami No acetazolam Samantha de 125 mg de 125 mg micheal 125 mg [facility] tablet TAKE tablet TAKE tablet dic 1 TABLET BY 1 TABLET BY TAKE 1 Sports MOUTH TWO MOUTH TWO TABLET BY Medicin TIMES A DAY TIMES A DAY MOUTH TWO e (START IT 2 (START IT 2 TIMES A DAYS PRIOR DAYS PRIOR DAY (START TO GOING TO TO GOING TO IT 2 DAYS HIGH HIGH PRIOR TO ALTITUDE) ALTITUDE) GOING TO HIGH ALTITUDE) amlodipine amlodipine No amlodipine Samantha 5 mg tablet 5 mg tablet 5 mg O [facility]ope TAKE 1 TAKE 1 tablet dic TABLET BY TABLET BY TAKE 1 Spo rts MOUTH EVERY MOUTH EVERY TABLET BY Medicin DAY DAY MOUTH e EVERY DAY atorvastati atorvastati No atorvastat Samantha n 10 mg n 10 mg in 10 mg Ortho pe tablet TAKE tablet TAKE tablet dic 1 TABLET BY 1 TABLET BY TAKE 1 Sports MOUTH EVERY MOUTH EVERY TABLET BY Medicin DAY DAY MOUTH e EVERY DAY Propafenone Propafenone Yes Lux TAKE ONE Common HCl ER HCl ER Mejia CAPSULE BY Spiri t MOUTH - [facility] EVERY [facility] HOURS [facility] dabigatran dabigatran No dabigatran Samantha etexilate etexilate etexilate [facility] 150 mg 150 mg 150 mg dic capsule capsule capsule Sports TAKE 1 TAKE 1 TAKE 1 Medicin CAPSULE BY CAPSULE BY CAPSULE BY e MOUTH TWICE MOUTH TWICE MOUTH A DAY A DAY TWICE A DAY Amlodipine Amlodipine Yes Lux TAKE 1 Common Besylate Besylate Mejia TABLET Spiri t EVERY DAY - [facility] IN [facility] DentaGel DentaGel No DentaGel Aza júnior 1.1 % APPLY 1.1 % APPLY 1.1 % [facility] TO TO APPLY TO dic TOOTHBRUSH TOOTHBRUSH TOOTHBRUSH Sports & BRUSH & BRUSH & BRUSH Medici n NIGHTLY. DO NIGHTLY. DO NIGHTLY. e NOT EAT OR NOT EAT OR DO NOT EAT DRINK FOR DRINK FOR OR DRINK 30 MINUTES 30 MINUTES FOR 30 AFTERWARDS AFTERWARDS MINUTES AFTERWARDS Atorvastati Atorvastati Yes Lux TAKE 1 Common n Calcium n Calcium Mejia TABLET BY Spirit MOUTH - [facility] EVERY DAY [facility] duloxetine duloxetine No duloxetine Samantha 30 mg 30 mg 30 mg [facility] capsule,del capsule,del capsule,de dic ayed ayed layed Sports release release release Medici n TAKE 1 TAKE 1 TAKE 1 e CAPSULE BY CAPSULE BY CAPSULE BY MOUTH IN MOUTH IN MOUTH IN THE MORNING THE MORNING THE AND 1 AND 1 MORNING CAPSULE IN CAPSULE IN AND 1 THE THE CAPSULE IN EVENING. EVENING. THE EVENING. Pradaxa Pradaxa Yes Lux TAKE ONE Co mmon Mejia CAPSULE BY Spirit MOUTH - [facility] TWICE A [facility] enoxaparin enoxaparin No enoxaparin Samantha 80 mg/0.8 80 mg/0.8 80 mg/0.8 [facility] mL mL mL dic subcutaneou subcutaneou subcutaneo Sports s syringe s syringe us syringe Medicin INJECT 1 INJECT 1 INJECT 1 e SYRINGE BY SYRINGE BY SYRINGE BY SUBCUTANEOU SUBCUTANEOU SUBCUTANEO S ROUTE S ROUTE US ROUTE EVERY 12 EVERY 12 EVERY 12 HOURS HOURS HOURS Duloxetine Duloxetine Yes Lux TAKE 1 Common HCl HCl Mejia CAPSULE BY Spirit MOUTH - [facility] TWICE A [facility] finasteride finasteride No finasterid Samantha 5 mg tablet 5 mg tablet e 5 mg [facility] TAKE 1 TAKE 1 tablet dic TABLET BY TABLET BY TAKE 1 Spo rts MOUTH EVERY MOUTH EVERY TABLET BY Medicin DAY MOUTH e EVERY DAY Metoprolol Metoprolol Yes Lux TAKE 1 Common Tartrate Tartrate Mejia TABLET BY Sp tony MOUTH - [facility] TWICE A [facility] hydrocodone hydrocodone No hydrocodon Samantha 5 5 e 5 [facility] mg-acetamin mg-acetamin mg-acetami dic ophen 325 ophen 325 nophen 325 Sports mg tablet mg tablet mg tablet Medicin TAKE 1 TAKE 1 TAKE 1 e TABLET BY TABLET BY TABLET BY MOUTH EVERY MOUTH EVERY MOUTH 4 HOURS 4 HOURS EVERY 4 NEEDED FOR NEEDED FOR HOURS PAIN PAIN NEEDED FOR PAIN Melatonin Melatonin Yes Lux as Co mmon Mejia directed [facility] [place] Jublia 10 % Jublia 10 % No Jublia 10 Samantha topical topical % topical Orth ope solution solution solution dic with with with Sports applicator applicator applicator Medicin APPLY A APPLY A APPLY A e SMALL SMALL SMALL AMOUNT VIA AMOUNT VIA AMOUNT VIA APPLICATOR APPLICATOR APPLICATOR EVERY NIGHT EVERY NIGHT EVERY TO TOENAILS TO TOENAILS NIGHT TO EVERY NIGHT EVERY NIGHT TOENAILS AT BEDTIME AT BEDTIME EVERY NIGHT AT BEDTIME Gary Vega Yes Lux not Common Mejia defined [facility] [place] Linzess 145 Linzess 145 No Linzess Samantha mcg capsule mcg capsule 145 mcg [facility] TAKE 1 TAKE 1 capsule dic CAPSULE BY CAPSULE BY TAKE 1 S ports MOUTH EVERY MOUTH EVERY CAPSULE BY Medicin DAY DAY MOUTH e EVERY DAY Trazodone Trazodone Yes Lux not Co mmon HCl HCl Mejia defined [facility] [place] metoprolol metoprolol No metoprolol Samantha tartrate 25 tartrate 25 tartrate [facility] mg tablet mg tablet 25 mg dic TAKE 1 TAKE 1 tablet Sports TABLET BY TABLET BY TAKE 1 Med icin MOUTH TWICE MOUTH TWICE TABLET BY e A DAY A DAY MOUTH TWICE A DAY Metoprolol Metoprolol No Metoprolol Tartrate 25 Tartrate 25 Tartrate MG MG 25 MG ondansetron ondansetron No ondansetro Samantha HCl 8 mg HCl 8 mg n HCl 8 mg O rthope tablet TAKE tablet TAKE tablet dic 1 TABLET BY 1 TABLET BY TAKE 1 Sports MOUTH EVERY MOUTH EVERY TABLET BY Medicin 8 HOURS 8 HOURS MOUTH e NEEDED NEEDED EVERY 8 HOURS NEEDED Linzess 290 Linzess 290 No Linzess mcg mcg 290 mcg propafenone propafenone No propafenon Samantha ER 425 mg ER 425 mg e ER 425 O rthope capsule,ext capsule,ext mg d ic ended ended capsule,ex Sports release 12 release 12 tended M edicin hr TAKE 1 hr TAKE 1 release 12 e CAPSULE BY CAPSULE BY hr TAKE 1 MOUTH EVERY MOUTH EVERY CAPSULE BY 12 HOURS 12 HOURS MOUTH EVERY 12 HOURS Tamsulosin Tamsulosin No Tamsulosin HCl HCl HCl rivastigmin rivastigmin No rivastigmi Samantha e 9.5 mg/24 e 9.5 mg/24 ne 9.5 [facility] hour hour mg/24 hour dic transdermal transdermal transderma Sports patch APPLY patch APPLY l patch Medicin 1 PATCH TO 1 PATCH TO APPLY 1 e SKIN IN THE SKIN IN THE PATCH TO MORNING. MORNING. SKIN IN THE MORNING. amLODIPine amLODIPine No amLODIPine Besylate 5 Besylate 5 Besylate 5 MG MG MG sildenafil sildenafil No sildenafil Samantha 100 mg 100 mg 100 mg [facility] tablet TAKE tablet TAKE tablet dic 1 TABLET BY 1 TABLET BY TAKE 1 Sports MOUTH EVERY MOUTH EVERY TABLET BY Medicin DAY DAY MOUTH e NEEDED NEEDED EVERY DAY ABOUT 1 ABOUT 1 NEEDED HOUR BEFORE HOUR BEFORE ABOUT 1 SEXUAL SEXUAL HOUR ACTIVITY ACTIVITY BEFORE SEXUAL ACTIVITY Atorvastati Atorvastati No Atorvastat n Calcium n Calcium in Calcium 10 MG 10 MG 10 MG Finasteride Finasteride No Finasterid e traZODone traZODone No traZODone HCl 50 MG HCl 50 MG HCl 50 MG DULoxetine DULoxetine No DULoxetine HCl 30 MG HCl 30 MG HCl 30 MG Propafenone Propafenone No Propafenon HCl ER 425 HCl ER 425 e HCl ER MG MG 425 MG Pradaxa 150 Pradaxa 150 No Pradaxa MG MG 150 MG tamsulosin tamsulosin No tamsulosin Samantha 0.4 mg 0.4 mg 0.4 mg [facility] capsule capsule capsule dic TAKE 2 TAKE 2 TAKE 2 Sports CAPSULES BY CAPSULES BY CAPSULES Medicin MOUTH MOUTH BY MOUTH e DAILY, TAKE DAILY, TAKE DAILY, 30 MINUTES 30 MINUTES TAKE 30 AFTER MEAL AFTER MEAL MINUTES AFTER MEAL traZODone traZODone No traZODone HCl 50 MG HCl 50 MG HCl 50 MG amLODIPine amLODIPine No amLODIPine Besylate 5 Besylate 5 Besylate 5 MG MG MG Propafenone Propafenone No Propafenon HCl ER 425 HCl ER 425 e HCl ER MG MG 425 MG Pradaxa 150 Pradaxa 150 No Pradaxa MG MG 150 MG Atorvastati Atorvastati No Atorvastat n Calcium n Calcium in Calcium 10 MG 10 MG 10 MG trazodone trazodone No trazodone Samantha 50 mg 50 mg 50 mg [facility] tablet TAKE tablet TAKE tablet dic 1 TABLET BY 1 TABLET BY TAKE 1 Sports MOUTH MOUTH TABLET BY Medicin EVERYDAY AT EVERYDAY AT MOUTH e BEDTIME BEDTIME EVERYDAY AT BEDTIME Melatonin Melatonin No Melatonin 10 MG 10 MG 10 MG Linzess 290 Linzess 290 No Linzess mcg mcg 290 mcg Metoprolol Metoprolol No Metoprolol Tartrate 25 Tartrate 25 Tartrate MG MG 25 MG DULoxetine DULoxetine No DULoxetine HCl 30 MG HCl 30 MG HCl 30 MG Finasteride Finasteride No Finasterid e amLODIPine amLODIPine No amLODIPine Besylate 5 Besylate 5 Besylate 5 MG MG MG Atorvastati Atorvastati No Atorvastat n Calcium n Calcium in Calcium 10 MG 10 MG 10 MG Pradaxa 150 Pradaxa 150 No Pradaxa MG MG 150 MG Linzess 290 Linzess 290 No Linzess mcg mcg 290 mcg DULoxetine DULoxetine No DULoxetine HCl 30 MG HCl 30 MG HCl 30 MG traZODone traZODone No traZODone HCl 50 MG HCl 50 MG HCl 50 MG Propafenone Propafenone No Propafenon HCl ER 425 HCl ER 425 e HCl ER MG MG 425 MG Tamsulosin Tamsulosin No Tamsulosin HCl HCl HCl Metoprolol Metoprolol No Metoprolol Tartrate 25 Tartrate 25 Tartrate MG MG 25 MG amLODIPine amLODIPine No amLODIPine Besylate 5 Besylate 5 Besylate 5 MG MG MG Metoprolol Metoprolol No Metoprolol Tartrate 25 Tartrate 25 Tartrate MG MG 25 MG DULoxetine DULoxetine No DULoxetine HCl 30 MG HCl 30 MG HCl 30 MG Finasteride Finasteride No Finasterid e Linzess 290 Linzess 290 No Linzess mcg mcg 290 mcg traZODone traZODone No traZODone HCl 50 MG HCl 50 MG HCl 50 MG Atorvastati Atorvastati No Atorvastat n Calcium n Calcium in Calcium 10 MG 10 MG 10 MG Pradaxa 150 Pradaxa 150 No Pradaxa MG MG 150 MG Tamsulosin Tamsulosin No Tamsulosin HCl HCl HCl Propafenone Propafenone No Propafenon HCl ER 425 HCl ER 425 e HCl ER MG MG 425 MG Metoprolol Metoprolol No Metoprolol Tartrate 25 Tartrate 25 Tartrate MG MG 25 MG Linzess 290 Linzess 290 No Linzess mcg mcg 290 mcg Tamsulosin Tamsulosin No Tamsulosin HCl HCl HCl amLODIPine amLODIPine No amLODIPine Besylate 5 Besylate 5 Besylate 5 MG MG MG Atorvastati Atorvastati No Atorvastat n Calcium n Calcium in Calcium 10 MG 10 MG 10 MG Finasteride Finasteride No Finasterid e traZODone traZODone No traZODone HCl 50 MG HCl 50 MG HCl 50 MG DULoxetine DULoxetine No DULoxetine HCl 30 MG HCl 30 MG HCl 30 MG Propafenone Propafenone No Propafenon HCl ER 425 HCl ER 425 e HCl ER MG MG 425 MG Pradaxa 150 Pradaxa 150 No Pradaxa MG MG 150 MG acetazolami acetazolami No acetazolam Samantha de 125 mg de 125 mg micheal 125 mg [facility] tablet TAKE tablet TAKE tablet dic 1 TABLET BY 1 TABLET BY TAKE 1 Sports MOUTH TWO MOUTH TWO TABLET BY Medicin TIMES A DAY TIMES A DAY MOUTH TWO e (START IT 2 (START IT 2 TIMES A DAYS PRIOR DAYS PRIOR DAY (START TO GOING TO TO GOING TO IT 2 DAYS HIGH HIGH PRIOR TO ALTITUDE) ALTITUDE) GOING TO HIGH ALTITUDE) amlodipine amlodipine No amlodipine Samantha 5 mg tablet 5 mg tablet 5 mg O rthope TAKE 1 TAKE 1 tablet dic TABLET BY TABLET BY TAKE 1 Spo rts MOUTH EVERY MOUTH EVERY TABLET BY Medicin DAY DAY MOUTH e EVERY DAY atorvastati atorvastati No atorvastat Samantha n 10 mg n 10 mg in 10 mg Ortho pe tablet TAKE tablet TAKE tablet dic 1 TABLET BY 1 TABLET BY TAKE 1 Sports MOUTH EVERY MOUTH EVERY TABLET BY Medicin DAY DAY MOUTH e EVERY DAY dabigatran dabigatran No dabigatran Samantha etexilate etexilate etexilate [facility] 150 mg 150 mg 150 mg dic capsule capsule capsule Sports TAKE 1 TAKE 1 TAKE 1 Medicin CAPSULE BY CAPSULE BY CAPSULE BY e MOUTH TWICE MOUTH TWICE MOUTH A DAY A DAY TWICE A DAY DentaGel DentaGel No DentaGel Aza júnior 1.1 % APPLY 1.1 % APPLY 1.1 % [facility] TO TO APPLY TO dic TOOTHBRUSH TOOTHBRUSH TOOTHBRUSH Sports & BRUSH & BRUSH & BRUSH Medici n NIGHTLY. DO NIGHTLY. DO NIGHTLY. e NOT EAT OR NOT EAT OR DO NOT EAT DRINK FOR DRINK FOR OR DRINK 30 MINUTES 30 MINUTES FOR 30 AFTERWARDS AFTERWARDS MINUTES AFTERWARDS duloxetine duloxetine No duloxetine Samantha 30 mg 30 mg 30 mg [facility] capsule,del capsule,del capsule,de dic ayed ayed layed Sports release release release Medici n TAKE 1 TAKE 1 TAKE 1 e CAPSULE BY CAPSULE BY CAPSULE BY MOUTH IN MOUTH IN MOUTH IN THE MORNING THE MORNING THE AND 1 AND 1 MORNING CAPSULE IN CAPSULE IN AND 1 THE THE CAPSULE IN EVENING. EVENING. THE EVENING. finasteride finasteride No finasterid Samantha 5 mg tablet 5 mg tablet e 5 mg [facility] TAKE 1 TAKE 1 tablet dic TABLET BY TABLET BY TAKE 1 Spo rts MOUTH EVERY MOUTH EVERY TABLET BY Medicin DAY DAY MOUTH e EVERY DAY Jublia 10 % Jublia 10 % No Jublia 10 Samantha topical topical % topical Orth ope solution solution solution dic with with with Sports applicator applicator applicator Medicin APPLY A APPLY A APPLY A e SMALL SMALL SMALL AMOUNT VIA AMOUNT VIA AMOUNT VIA APPLICATOR APPLICATOR APPLICATOR EVERY NIGHT EVERY NIGHT EVERY TO TOENAILS TO TOENAILS NIGHT TO EVERY NIGHT EVERY NIGHT TOENAILS AT BEDTIME AT BEDTIME EVERY NIGHT AT BEDTIME Linzess 145 Linzess 145 No Linzess Samantha mcg capsule mcg capsule 145 mcg [facility] TAKE 1 TAKE 1 capsule dic CAPSULE BY CAPSULE BY TAKE 1 S ports MOUTH EVERY MOUTH EVERY CAPSULE BY Medicin DAY DAY MOUTH e EVERY DAY metoprolol metoprolol No metoprolol Samantha tartrate 25 tartrate 25 tartrate [facility] mg tablet mg tablet 25 mg dic TAKE 1 TAKE 1 tablet Sports TABLET BY TABLET BY TAKE 1 Med icin MOUTH TWICE MOUTH TWICE TABLET BY e A DAY A DAY MOUTH TWICE A DAY propafenone propafenone No propafenon Samantha ER 425 mg ER 425 mg e ER 425 O rthope capsule,ext capsule,ext mg d ic ended ended capsule,ex Sports release 12 release 12 tended M edicin hr TAKE 1 hr TAKE 1 release 12 e CAPSULE BY CAPSULE BY hr TAKE 1 MOUTH EVERY MOUTH EVERY CAPSULE BY 12 HOURS 12 HOURS MOUTH EVERY 12 HOURS rivastigmin rivastigmin No rivastigmi Samantha e 9.5 mg/24 e 9.5 mg/24 ne 9.5 [facility] hour hour mg/24 hour dic transdermal transdermal transderma Sports patch APPLY patch APPLY l patch Medicin 1 PATCH TO 1 PATCH TO APPLY 1 e SKIN IN THE SKIN IN THE PATCH TO MORNING. MORNING. SKIN IN THE MORNING. sildenafil sildenafil No sildenafil Samantha 100 mg 100 mg 100 mg [facility] tablet TAKE tablet TAKE tablet dic 1 TABLET BY 1 TABLET BY TAKE 1 Sports MOUTH EVERY MOUTH EVERY TABLET BY Medicin DAY DAY MOUTH e NEEDED NEEDED EVERY DAY ABOUT 1 ABOUT 1 NEEDED HOUR BEFORE HOUR BEFORE ABOUT 1 SEXUAL SEXUAL HOUR ACTIVITY ACTIVITY BEFORE SEXUAL ACTIVITY tamsulosin tamsulosin No tamsulosin Samantha 0.4 mg 0.4 mg 0.4 mg [facility] capsule capsule capsule dic TAKE 2 TAKE 2 TAKE 2 Sports CAPSULES BY CAPSULES BY CAPSULES Medicin MOUTH MOUTH BY MOUTH e DAILY, TAKE DAILY, TAKE DAILY, 30 MINUTES 30 MINUTES TAKE 30 AFTER MEAL AFTER MEAL MINUTES AFTER MEAL trazodone trazodone No trazodone Samantha 50 mg 50 mg 50 mg [facility] tablet TAKE tablet TAKE tablet dic 1 TABLET BY 1 TABLET BY TAKE 1 Sports MOUTH MOUTH TABLET BY Medicin EVERYDAY AT EVERYDAY AT MOUTH e BEDTIME BEDTIME EVERYDAY AT BEDTIME acetazolami acetazolami No acetazolam Samantha de 125 mg de 125 mg micheal 125 mg [facility] tablet TAKE tablet TAKE tablet dic 1 TABLET BY 1 TABLET BY TAKE 1 Sports MOUTH TWO MOUTH TWO TABLET BY Medicin TIMES A DAY TIMES A DAY MOUTH TWO e (START IT 2 (START IT 2 TIMES A DAYS PRIOR DAYS PRIOR DAY (START TO GOING TO TO GOING TO IT 2 DAYS HIGH HIGH PRIOR TO ALTITUDE) ALTITUDE) GOING TO HIGH ALTITUDE) amlodipine amlodipine No amlodipine Samantha 5 mg tablet 5 mg tablet 5 mg O [facility]ope TAKE 1 TAKE 1 tablet dic TABLET BY TABLET BY TAKE 1 Spo rts MOUTH EVERY MOUTH EVERY TABLET BY Medicin DAY DAY MOUTH e EVERY DAY atorvastati atorvastati No atorvastat Samantha n 10 mg n 10 mg in 10 mg Ortho pe tablet TAKE tablet TAKE tablet dic 1 TABLET BY 1 TABLET BY TAKE 1 Sports MOUTH EVERY MOUTH EVERY TABLET BY Medicin DAY DAY MOUTH e EVERY DAY dabigatran dabigatran No dabigatran Samantha etexilate etexilate etexilate [facility] 150 mg 150 mg 150 mg dic capsule capsule capsule Sports TAKE 1 TAKE 1 TAKE 1 Medicin CAPSULE BY CAPSULE BY CAPSULE BY e MOUTH TWICE MOUTH TWICE MOUTH A DAY A DAY TWICE A DAY DentaGel DentaGel No DentaGel Aza júnior 1.1 % APPLY 1.1 % APPLY 1.1 % [facility] TO TO APPLY TO dic TOOTHBRUSH TOOTHBRUSH TOOTHBRUSH Sports & BRUSH & BRUSH & BRUSH Medici n NIGHTLY. DO NIGHTLY. DO NIGHTLY. e NOT EAT OR NOT EAT OR DO NOT EAT DRINK FOR DRINK FOR OR DRINK 30 MINUTES 30 MINUTES FOR 30 AFTERWARDS AFTERWARDS MINUTES AFTERWARDS Immunizations Ordered Filled Immunization Date Status Comments Sour e Immunization Name Name Bupivicaine [place] Bupivicaine [place] 2021-03-18 [facility]pleted [facility] 10:31:00 [facility] Kenalog Kenalog 2021-03-18 Completed [facility] - (Triamcinolone) (Triamcinolone) 10:31:00 [facility] SARS-COV-2 COVID-19 2020-08-01 Completed Unive rsity of PFIZER VACCINE 00:00:00 [place] [facility] SARS-COV-2 COVID-19 2020-08-01 Completed Unive rs[facility] of PFIZER VACCINE 00:00:00 [facility] [place] [facility] SARS-COV-2 COVID-19 2020-08-01 Completed Unive rsity of PFIZER VACCINE 00:00:00 [facility] SARS-COV-2 COVID-19 2020-08-01 Completed Unive rsity of PFIZER VACCINE 00:00:00 [facility] [place] [facility] SARS-COV-2 COVID-19 2020-08-01 Completed Unive rs[facility] of PFIZER VACCINE 00:00:00 [facility] [place] [facility] SARS-COV-2 COVID-19 2020-08-01 Completed Unive rs[facility] of PFIZER VACCINE 00:00:00 [facility] [place] [facility] SARS-COV-2 COVID-19 2020-08-01 Completed Unive rs[facility] of PFIZER VACCINE 00:00:00 [facility] SARS-COV-2 COVID-19 2020-08-01 Completed Unive [facility] of PFIZER VACCINE 00:00:00 [facility] SARS-COV-2 COVID-19 2020-08-01 Completed [facility]ive [facility] of PFIZER VACCINE 00:00:00 [facility] [place] [facility] SARS-COV-2 COVID-19 2020-07-11 Completed [facility] of PFIZER VACCINE 00:00:00 [facility] [place] [facility] SARS-COV-2 COVID-19 2020-07-11 Completed [facility] of PFIZER VACCINE 00:00:00 [facility] SARS-COV-2 COVID-19 2020-07-11 Completed [facility] of PFIZER VACCINE 00:00:00 [facility] [place] [facility] SARS-COV-2 COVID-19 2020-07-11 Completed [facility] of PFIZER VACCINE 00:00:00 [facility] [place] [facility] SARS-COV-2 COVID-19 2020-07-11 Completed [facility] of PFIZER VACCINE 00:00:00 [facility] SARS-COV-2 COVID-19 2020-07-11 Completed [facility] of PFIZER VACCINE 00:00:00 [facility] SARS-COV-2 COVID-19 2020-07-11 Completed [facility] of PFIZER VACCINE 00:00:00 [facility] SARS-COV-2 COVID-19 2020-07-11 Completed [facility] of PFIZER VACCINE 00:00:00 [facility] SARS-COV-2 COVID-19 2020-07-11 Completed Unive rsity of PFIZER VACCINE 00:00:00 [facility] Vital Signs Vital Name Observation Time Observation Value Comments Source Systolic blood 2022-06-15 15:19:00 140 mm[Hg] Univer sity of pressure [facility] Diastolic blood 2022-06-15 15:19:00 69 mm[Hg] Unive rsity of [facility] Heart rate 2022-06-15 15:19:00 55 /min Universi ty [facility] Body height 2022-06-15 15:19:00 177.8 [facility] 2022-06-15 15:19:00 80.287 kg [facility] BMI 2022-06-15 15:19:00 25.40 kg/m2 [facility] Oxygen saturation in 2022-06-15 15:19:00 98 [facility] Arterial blood by [facility] Pulse oximetry Branch height 2022-01-22 08:30:00 70 [in_i] [facility] weight 2022-01-22 08:30:00 176 [lb_av] [facility] temperature 2022-01-22 08:30:00 97.3 [degF] [facility] bmi 2022-01-22 08:30:00 25.25 kg/m2 Common [facility] blood pressure 2022-01-22 08:30:00 132 mm[Hg] [facility] - systolic [facility] blood pressure 2022-01-22 08:30:00 80 mm[Hg] [facility] - diastolic [facility] Systolic blood 2022-01-20 14:23:00 121 mm[Hg] Univer sity of [facility] Diastolic blood 2022-01-20 14:23:00 68 mm[Hg] Unive rsity of [facility] Heart rate 2022-01-20 14:23:00 54 /min Universi ty [facility] Body height 2022-01-20 14:23:00 177.8 cm Universi [facility] Body weight 2022-01-20 14:23:00 80.74 kg Universi [facility] BMI 2022-01-20 14:23:00 25.54 kg/m2 [facility] Oxygen saturation in 2022-01-20 14:23:00 98 /min [facility] blood by [facility] Pulse oximetry Branch height 2021-10-21 15:30:00 70 [in_i] [facility] weight 2021-10-21 15:30:00 180 [lb_av] [facility] temperature 2021-10-21 15:30:00 98.7 [degF] [facility] bmi 2021-10-21 15:30:00 25.82 kg/m2 [facility] blood pressure 2021-10-21 15:30:00 114 mm[Hg] [facility] - [facility] blood pressure 2021-10-21 15:30:00 72 mm[Hg] [facility] - diastolic [facility] height 2021-09-09 10:30:00 70 [in_i] [facility] weight 2021-09-09 10:30:00 184.8 [lb_av] [facility] bmi 2021-09-09 10:30:00 26.51 kg/m2 [facility] height 2021-03-18 09:30:00 70 [in_i] [facility] weight 2021-03-18 09:30:00 180.2 [lb_av] [facility] temperature 2021-03-18 09:30:00 97.3 [degF] [facility] bmi 2021-03-18 09:30:00 25.85 kg/m2 [facility] blood pressure 2021-03-18 09:30:00 120 mm[Hg] [facility] - systolic [facility] blood pressure 2021-03-18 09:30:00 70 mm[Hg] Common [facility] Procedures Procedure Date / Time Performing Clinician Source Performed XR, foot, 2 view 2022-08-05 00:00:00 [facility] XR, foot, 2 view 2022-07-03 00:00:00 [facility] Colonoscopy 2018-06-14 00:00:00 [facility] [U] XRAY KNEE 4 OR MORE 2017-10-12 00:00:00 [place] [facility] VWS RIGHT 23707 Foot Surgery [facility] Plan of Care Planned Activity Planned Date Details Comments Source Future Appointment 2022-09-08 Shaun Hastings, [address] [facility] 09:45:00 Main [facility] , [place] [address] Instructions [facility] Encounters Start End Encounter Admission Attending Care Care Encounter Source Date/Time Date/Time Type Type Clinicians Facility Department ID 2022-03-31 Outpatient Helton, STLMLC STLC [id number] Common 14:00:00 Gabo 14873 [facility] [place] 2022-03-30 Outpatient Helton, STLMLC STLC [id number] Common 11:10:00 Gabo [facility] 2022-01-27 Outpatient Helton, STLMLC STLMLC [id number] Common 12:14:00 Gabo 14562 [facility] 2021-09-09 Outpatient Helton, STLMLC STLC [id number] Common 10:42:01 Gabo [facility] 2021-07-09 Outpatient Helton, STLMLC STLMLC [id number] Common 13:56:51 Gabo 06505 [facility] [place] 2023-06-15 2023-06-15 Outpatient June ABRAJAS [facility] [id number] Univers 09:00:00 09:00:00 PATY humphries [facility] 2022-08-25 2022-08-25 Telephone Sandy [facility] 1.2.840.114 [id number] Univers 00:00:00 00:00:00 [facility] 350.1.13.10 ity of [place] 4.2.7.2.686 Nicholas as ALISA?BLEA [id number] [address] 2022-08-25 2022-08-25 [email or web address]] 1.2.840.114 [id number] Univers 00:00:00 00:00:00 [facility] 350.1.13.10 ity of [place] 4.2.7.2.686 Nicholas as ALISA?BLEA [id number] [address] 2022-08-17 2022-08-17 [facility] 1.2.840.114 [id number] Univers 00:00:00 00:00:00 [facility] 350.1.13.10 [facility] 4.2.7.2.686 Nicholas as ALISA?BLEA [id number] [address] 2022-08-10 2022-08-10 [email or web address] 1.2.840.114 [id number] Univers 00:00:00 00:00:00 [facility] 350.1.13.10 ity of [place] 4.2.7.2.686 Nicholas as ALISA?BLEA [phone] [address] 2022-08-05 2022-08-05 Outpatient FOG_Bloome_ AOSM AO [id number] Samantha 00:00:00 00:00:00 Alethea [id number] Ortho pe dic [facility] Medic[facility] 2022-08-05 2022-08-05 Sahun Butler AOSM [place] - Ortho [id number] Samantha 00:00:00 00:00:00 Annette Hastings MD: 7401 FOG_Ofc dic [facility] Spo [facility] [place], [place] [address] , Ph. [phone] 2022-07-20 2022-07-20 Outpatient DAVID Hastings [facility] [id number] [facility] 11:28:00 11:28:00 [facility] 2022-07-20 2022-07-20 Outpatient FOG_Bloome_ AOSM AOSM [id number] Samantha 00:00:00 00:00:00 Alethea [id number] Ortho pe dic Sports Medicin e 2022-07-20 2022-07-20 Outpatient FOG_Bloome_ AOSM AOSM [id number] Samantha 00:00:00 00:00:00 Alethea [id number] Ortho pe dic [facility] Medicin e 2022-07-20 2022-07-20 Outpatient FOG_Bloome_ AOSM AOSM [id number] Samantha 00:00:00 00:00:00 Alethea [id number] Ortho pe dic Sports Medicin e 2022-07-20 2022-07-20 Shaun HUDSONSM [place] - Ortho [id number] Samantha 00:00:00 00:00:00 Annette Hastings MD: 7401 FOG_Surgery dic [facility] [place] [address] , Ph. [phone] 2022-07-03 2022-07-03 Outpatient FOG_Bloome_ AOSM AOSM [id number] Samantha 00:00:00 00:00:00 Alethea [id number] Ortho pe dic Sports Medicin e 2022-07-03 2022-07-03 Shaun HUDSONSM [place] - Ortho [id number] Samantha 00:00:00 00:00:00 Annette Hastings MD: 7401 FOG_Ofc dic [facility] [place] [facility] [place] [address] , Ph. [phone] 2022 2022 Outpatient FOG_Blo[place]_ AOSM AOSM [id number] Samantha 00:00:00 00:00:00 Alethea [id number] Ortho pe dic Sports Medicin e 2022-06-22 2022-06-22 Outpatient FOG_Blo[place]_ AOSM AOSM [id number] Samantha 00:00:00 00:00:00 Alethea [id number] Ortho pe dic Sports Medicin e 2022-06-22 2022-06-22 Outpatient FOG_Bloome_ AOSM AOSM [id number] Samantha 00:00:00 00:00:00 Alethea [id number] Ortho pe dic Sports Medicin e 2022-06-15 2022-06-15 Outpatient June JOHNSON DELGADO [facility] [id number] Univers 09:20:00 09:51:55 JOHNSON DELGADO [facility] 2022-06-15 2022-06-15 Office [email or web address] 1.2.840.114 [id number] Univers 09:20:00 09:51:55 Visit [facility] 350.1.13.10 ity of [place] 4.2.7.2.686 Nicholas as ALISA?BLEA [phone] [address] OFFICE [facility] 2022-06-11 2022-06-11 Refill [email or web address] 1.2.840.114 [id number] Univers 00:00:00 00:00:00 [facility] 350.1.13.10 ity of [place] 4.2.7.2.686 Nicholas as ALISA?BLEA [phone] [address] OFFICE [facility] 2022-05-20 2022-05-20 Telephone [email or web address] 1.2.840.114 [id number] Univers 00:00:00 00:00:00 [facility] 350.1.13.10 ity of [place] 4.2.7.2.686 Nicholas as ALISA?BLEA [id number] [address] 2022-03-30 2022-03-30 [facility] [id number] Co mmon 00:00:00 00:00:00 Spirit - [facility] 2022-01-22 2022-01-22 [facility] [id number] Co mmon 00:00:00 00:00:00 VISIT Spirit ESTAB PT - CHI LEVEL 4 [facility] 2022-01-20 2022-01-20 Outpatient JOHNSON ABDI [facility] [id number] Univers 09:20:00 09:56:46 JOHNSON DELGADO [facility] 2022-01-20 2022-01-20 Office Sandy, [facility] 1.2.840.114 [id number] Univers 09:20:00 09:56:46 Visit [facility] 350.1.13.10 [facility] 4.2.7.2.686 Nicholas as ALISA?BLEA [phone] [address] OFFICE [facility] 2022-01-20 2022-01-20 Orders Doctor EUGENIA 1.2.840.114 [id number] Univers 00:00:00 00:00:00 Only Unassigned, IFTIKHAR 350.1.13.10 ity of [place] [facility] 4.2.7.2.686 Nicholas as [id number] [address] 2022-01-01 2022-01-01 Refkaylan DelgadoTH[email or web address] 1.2.840.114 [id number] Univers 00:00:00 00:00:00 [facility] 350.1.13.10 [facility] 4.2.7.2.686 Nicholas as ALISA?BLEA [id number] [address] OFFICE [facility] 2021-11-30 2021-11-30 [facility] Sandy, [facility] 1.2.840.114 [id number] Univers 00:00:00 00:00:00 [facility] 350.1.13.10 [facility] 4.2.7.2.686 Nicholas as ALISA?BLEA [id number] [address] OFFICE [facility] 2021-10-31 2021-10-31 Anali Del[facility]TH[email or web address]] 1.2.840.114 [id number] Univers 00:00:00 00:00:00 [facility] 350.1.13.10 ity of [place] 4.2.7.2.686 Nicholas as ALISA?BLEA [id number] [address] OFFICE [facility] 2021-10-21 2021-10-21 OFFICE [facility] [id number] Co mmon 00:00:00 00:00:00 VISIT EST Spir it PT LEVEL 3 - [facility] 2021-10-07 2021-10-07 Refkaylan DelgadoTH[email or web address] 1.2.840.114 [id number] Univers 00:00:00 00:00:00 Johnson Jacob LISA 350.1.13.10 it[place] of [place] [phone] Ca dical NAL [address] [place] [address] 2021-09-09 2021-09-09 [facility] [id number] Co mmon 00:00:00 00:00:00 VISIT Spirit ESTAB PT - CHI LEVEL 4 [facility] 2021-08-28 2021-08-28 Sergio DelgadoTH[email or web address] 1.2.840.114 [id number] Univers 00:00:00 00:00:00 Johnson Jacob LISA 350.1.13.10 ity of [place] [phone] [address] 2021-08-04 2021-08-04 [facility]TH[email or web address]] 1.2.840.114 [id number] Univers 00:00:00 00:00:00 Johnson GONZALEZ 350.1.13.10 ity of [facility] 4.2.7.2.686 [place] [phone] [facility] NAL [address] [place] [address] 2021-05-24 2021-05-24 [facility] Del[facility]TH[email or web address]] 1.2.840.114 [id number] Univers 00:00:00 00:00:00 Johnson GONZALEZ 350.1.13.10 ity of [place] 4[place]2.7.2.[place] [phone] [facility] NAL [address] [place] [address] 2021-04-09 2021-04-09 [facility] Del[facility]TH[email or web address]] 1.2.840.114 [id number] Univers 00:00:00 00:00:00 Johnson Gonzalez 350.1.13.10 ity of [place]2.7.2.[place] [phone] Ca dical nal [address] [place] [address] 2021-03-18 2021-03-18 [facility] [id number] Co mmon 00:00:00 00:00:00 VISIT Spirit ESTAB PT - CHI LEVEL 4 [facility] 2021-01-10 2021-01-10 Refkaylan DelgdaoTH[email or web address] 1.2.840.114 [id number] Univers 00:00:00 00:00:00 Johnson Gonzalez 350.1.13.10 ity of [place].7.2.[place] [phone] [address] 2020-11-04 2020-11-04 Office Sandy [facility] 1.2.840.114 [id number] Univers 10:58:46 11:50:02 Visit Johnson Gonzalez 350.1.13.10 ity of [place]2.7.2.[place] [phone] [address] 2020-11-04 2020-11-04 Outpatient R JOHNSON DELGADO [facility] [id number] Univers 11:00:00 11:00:00 [facility] 2020-10-30 2020-10-30 Refkaylan DelgadoTH[email or web address] 1.2.840.114 [id number] Univers 00:00:00 00:00:00 Johnson Gonzalez 350.1.13.10 ity of [place] 4[place]2.7.2.[place] [id number] [address] 2020-10-21 2020-10-21 Refkaylan DelgadoTH[email or web address] 1.2.840.114 [id number] Univers 00:00:00 00:00:00 Johnson Gonzalez 350.1.13.10 ity of [place] 4[place]2.7.2.[place] [phone] Ca dicsd nal [address] [place] [address] 2020-09-27 2020-09-27 Sergio Del[facility]TH[email or web address] 1.2.840.114 [id number] Univers 00:00:00 00:00:00 Johnson Gonzalez 350.1.13.10 ity of [place] 4[place]2.7.2.[place] [phone] Ca dic[address] 2020-08-01 2020-08-01 Outpatient June SIMPSON, [facility] [id number] Univers 12:30:00 12:30:00 KELSEY ity [facility] 2020-07-11 2020-07-11 Outpatient June SIMPSON [facility] [id number] Univers 12:30:00 12:30:00 KELSEY ity [facility] 2020-07-03 2020-07-03 [facility]alk[facility] CodyocheTH[email or web address]] 1.2.840.114 [id number] Univers 00:00:00 00:00:00 Johnson Gonzalez 350.1.13.10 ity of [place] 4[place]2.7.2.[place] [phone] [address] 2020-06-18 2020-06-18 [facility] Del[facility]TH[email or web address]] 1.2.840.114 [id number] Univers 00:00:00 00:00:00 Johnson Gonzalez 350.1.13.10 ity of [place] 4[place]2.7.2.[place] [phone] [address] 2020-03-28 2020-03-28 [facility] DelgadoTH[email or web address]] 1.2.840.114 [id number] Univers 00:00:00 00:00:00 Johnson Gonzalez 350.1.13.10 ity of [place] 4[place]2.7.2.[place] [id number] [address] 2020-03-27 2020-03-27 [facility] Del[facility]TH[email or web address]] 1.2.840.114 [id number] Univers 00:00:00 00:00:00 Johnson Gonzalez 350.1.13.10 ity of [place] 4[place]2.7.2.[place] [phone] [address] 2020-02-23 2020-02-23 Sergio DelgadoTH[email or web address] 1.2.840.114 [id number] Univers 00:00:00 00:00:00 Johnson Gonzalez 350.1.13.10 ity of [place]2.7.2.[place] [phone] [place] 249052 [facility] 2020-02-14 2020-02-14 Refill Sandy [facility] 1.2.840.114 [id number] Univers 00:00:00 00:00:00 Johnson Gonzalez 350.1.13.10 ity of [place] 4[place]2.7.2.[place] [phone] [address] 2019-10-24 2019-10-24 Office Sandy [facility] 1.2.840.114 [id number] Univers 11:08:06 11:54:16 Visit oJhnson Gonzalez 350.1.13.10 ity of [place] 4.2.7.2.686 [place] [phone] [address] 2019-10-24 2019-10-24 Outpatient R JOHNSON DELGADO [facility] [id number] Univers 11:00:00 11:00:00 JOHNSON DELGADO ity of [facility] 2019-10-24 2019-10-24 Orders Doctor EUGENIA 1.2.840.114 [id number] Univers 00:00:00 00:00:00 Only Unassigned, IFTIKHAR 350.1.13.10 [email or web address] 4.2.7.2.686 Nicholas as [phone] [address] 2019-10-11 2019-10-11 [facility]ill [email or web address] 1.2.840.114 [id number] Univers 00:00:00 00:00:00 Johnson Gonzalez 350.1.13.10 ity of [place] 4[place]2.7.2.[place] [phone] [address] 2019-07-05 2019-07-05 [email or web address] 1.2.840.114 [id number] Univers 00:00:00 00:00:00 Johnson Gonzalez 350.1.13.10 ity of [place] 4.2.7.2.[place] [phone] [address] 2019-02-23 2019-02-23 [facility] [id number] Common 10:30:00 10:30:00 t Bone Bone and Spiri t and Joint Joint - [facility] 2019-02-21 2019-02-21 Office [email or web address] 1.2.840.114 [id number] Univers 10:49:06 11:48:18 Visit Johnson Gonzalez 350.1.13.10 ity of [place] 4.2.7.2.[place] [phone] [address] 2019-02-21 2019-02-21 Orders Doctor EUGENIA 1.2.840.114 [id number] Univers 00:00:00 00:00:00 Only Unassigned, IFTIKHAR 350.1.13.10 [email or web address] 4.2.7.2.686 Nicholas as [phone] [address] 2019-02-14 2019-02-14 [facility] 1.2.840.114 [id number] Univers 00:00:00 00:00:00 Johnson Gonzalez 350.1.13.10 ity of [place] 4.2.7.2.[place] [phone] [address] 2019-01-19 2019-01-19 [facility] 1.2.840.114 [id number] Univers 00:00:00 00:00:00 Johnson Gonzalez 350.1.13.10 ity of [place] 4.2.7.2.[place] [phone] [address] 2018-09-05 2018-09-05 Outpatient [facility] [id number] Common 11:00:00 11:00:00 t Bone Bone and Spiri t and Joint Joint - [facility] 2018-01-03 2018-01-03 [facility] [id number] Common 10:30:00 10:30:00 t Bone Bone and Spiri t and Joint Joint - [facility] 2017-10-15 2017-10-15 Kendrick MEEHAN, [facility] Orthopedics [id number] [place] 13:30:00 13:30:00 t; FRANKLYN MEEHAN M.D. at [facility] jovana ESTES M.D. Results This patient has no known results.
[2022-08-30] MEDS ORDERED: IPRATROPIUM BROM 0.5MG/2.5ML ONE (17:23)
[2022-08-30] MEDS ORDERED: ALBUTEROL 2.5 MG/3 ML NEB SOL ONE (17:23)
[2022-08-30 17:34] LABS: Absolute Lymphocytes (CBC) 0.5 K/uL (0.7-4.9); Hematocrit 36.9 % (39.6-49.0); Lymphocytes % 8.5 % (15.3-44.8); MCV 96.7 fL (80-100); MPV 9.1 fL (7.6-11.3); RBC Red Blood Cell Count 3.81 M/uL (4.33-5.43)
[2022-08-30 17:39] LABS: Protime INR 1.44
--- NOTE | 2022-08-30 17:40 | RAD REPORT ---
EXAM DESCRIPTION: [facility] Single View08/30/2022 5:31 pm CLINICAL HISTORY: SOB COMPARISON: Chest Pa And Lat (2 Views) dated 03/02/2017; Chest Pa And Lat (2 Views) dated 03/11/2016; CHEST SINGLE VIEW dated 03/10/2011; CHEST PA AND LAT 2 VIEW dated 08/10/2007; Colon Ba Enema W/Air Cont dated 07/29/2016 TECHNIQUE: Portable AP view of the chest. FINDINGS: Patchy bibasilar airspace opacities more pronounced on the left. Suspected elevation of th e right hemidiaphragm, with colonic transposition. No pneumothorax or effusion. The cardiomediastinal contours are unremarkable. IMPRESSION: Patchy bibasilar airspace opacities, worse on the left, concerning for developing pneumo aric.
[2022-08-30 18:00] LABS: Albumin 3.2 g/dL (3.4-5.0); Bilirubin Total 0.6 mg/dL (0.2-1.0); Potassium 3.8 mEq/L (3.5-5.1); Protein, Total 6.5 g/dL (6.4-8.2); Troponin High Sensitivity 7.9 pg/mL (<58.9)
[2022-08-30 18:03] LABS: Magnesium 2.1 mg/dL (1.6-2.4)
[2022-08-30 18:15] LABS: SARS-COV-2 RT PCR NEGATIVE (NEGATIVE)
[2022-08-30] MEDS ORDERED: CEFTRIAXONE 1000 MG/VIAL ONE (18:34)
[2022-08-30] MEDS ORDERED: NA CHLORIDE 0.9% 250 ML ONE (18:34)
[2022-08-30] MEDS ORDERED: AZITHROMYCIN 500 MG INJ IVPB ONE (18:34)
--- NOTE | 2022-08-30 19:26 | ER ---
Nurse's Notes [facility] Name: Jani Taylor III Age: 72 yrs Sex: Male : 1950 Arrival Date: 08/30/2022 Time: 16:47 Bed 3 Private MD: Isidoro Helton C Diagnosis: Pneumonia due to other specified infectious organisms;Hypoxemia Presentation: 08/30 16:57 Chief complaint: Patient states: Cough, weak, malaise for 4 days. Sent over for further ll1 eval by [facility]. They gave albuterol TX and CXR showed L sided pneumonia. Fever 99.9 earlier today. Coronavirus screen: Vaccine status: Patient reports receiving the 2nd dose of the covid vaccine. Client denies travel out of the [place] in the last 14 days. congestion, cough unrelated to allergies, fatigue, shortness of breath, Client presents with at least one sign or symptom that may indicate coronavirus-19. Standard/surgical mask placed on the client. Ebola Screen: Patient denies travel to an Ebola-affected area in the 21 days before illness onset. Initial Sepsis Screen: Does the patient meet any 2 criteria? No. Patient's initial sepsis screen is negative. Does the patient have a suspected source of infection? Yes: Productive cough/pneumonia. Risk Assessment: Do you want to hurt yourself or someone else? Patient reports no desire to harm self or others. Onset of symptoms was August 29, 2022. 16:57 Method Of Arrival: Ambulatory ll1 16:57 Acuity: KYLE 2 ll1 Triage Assessment: 16:58 General: Appears uncomfortable, ill, Behavior is cooperative, appropriate for age. ll1 Pain: Denies pain. Neuro: Reports weakness. 16:58 Respiratory: Reports cough that is non-productive. ll1 Historical: - Allergies: 16:57 No Known Allergies; ll1 - PMHx: 16:57 High Cholesterol; Hypertension; post polio syndrome; A fib; ll1 - PSHx: 16:57 foot SX; ll1 - Immunization history:: Client reports receiving the 2nd dose of the Covid vaccine. - Social history:: Smoking status: Patient denies any tobacco usage or history of. Screenin:23 [facility] ED Fall Risk Assessment (Adult) Score/Fall Risk Level 0 - 2 = Low Risk hb Oriented to surroundings, Maintained a safe environment, Educated pt \T\ family on fall prevention, incl call for assistance when getting out of bed. Abuse screen: Denies threats or abuse. Denies injuries from another. Nutritional screening: No deficits noted. Tuberculosis screening: No symptoms or risk factors identified. Assessment: 17:30 General: Appears in no apparent distress. Behavior is calm, cooperative. Pain: Denies hb pain. Neuro: Level of Consciousness is awake, alert, obeys commands, Oriented to person, place, time, situation. Cardiovascular: Patient's skin is warm and dry. Respiratory: Reports shortness of breath at rest on exertion Respiratory effort is even, unlabored, Respiratory pattern is regular, symmetrical. GI: No signs and/or symptoms were reported involving the gastrointestinal system. : No signs and/or symptoms were reported regarding the genitourinary system. EENT: No signs and/or symptoms were reported regarding the EENT system. Derm: Skin is pink, warm \T\ dry. Musculoskeletal: No signs and/or symptoms reported regarding the musculoskeletal system. 19:05 Reassessment: Patient appears in no apparent distress at this time. Patient and/or hb family updated on plan of care and expected duration. Pain level reassessed. Patient is alert, oriented x 3, equal unlabored respirations, skin warm/dry/pink. 19:47 Reassessment: Patient appears in no apparent distress at this time. Patient and/or jb4 family updated on plan of care and expected duration. Pain level reassessed. Patient is alert, oriented x 3, equal unlabored respirations, skin warm/dry/pink. Vital Signs: 16:57 BP 129 / 63; Pulse 60; Resp 18; Temp 99.1(O); Pulse Ox 92% on R/A; Pain 0/10; hb 17:53 BP 133 / 74; Pulse 57; Resp 16; Pulse Ox 95% on R/A; Pain 0/10; ss 19:00 BP 130 / 63; Pulse 64; Resp 15; Pulse Ox 100% on R/A; hb 19:47 BP 140 / 65; Pulse 60; Resp 16; Pulse Ox 95% on 2 lpm NC; jb4 20:51 BP 128 / 64; Pulse 60; Resp 18; Pulse Ox 94% on 2 lpm NC; jb4 16:57 Pain Scale: Adult hb 17:53 Pain Scale: Adult ss ED Course: 16:47 Patient arrived in ED. mr 16:47 Isidoro Helton MD is Private Physician. mr 16:49 Jonah Montes PA is PHCP. cp 16:49 Shmuel Ware MD is Attending Physician. cp 16:57 Arm band placed on Patient placed in an exam room, on a stretcher. ll1 16:59 Triage completed. ll1 17:20 Inserted saline lock: 20 gauge in right antecubital area, using aseptic technique. hb Blood collected. 17:22 CMP Sent. hb 17:22 Blood Culture Adult (2) Sent. hb 17:22 Lactate w/ 2H reflex if indic. Sent. hb 17:22 COVID-19/FLU A+B Sent. hb 17:22 CBC with Diff Sent. hb 17:22 D-Dimer Sent. hb 17:22 Magnesium Sent. hb 17:22 NT PRO-BNP Sent. hb 17:22 PT-INR Sent. hb 17:22 Troponin HS Sent. hb 17:33 XRAY Chest (1 view) In Process Unspecified. EDMS 17:46 Patient has correct armband on for positive identification. hb 17:53 Nicole Herrera RN is Primary Nurse. ss 19:25 Isidoro Helton MD is Hospitalizing Provider. cp 21:12 No provider procedures requiring assistance completed. Patient admitted, IV remains in pf1 place. Administered Medications: 17:22 Drug: DuoNeb Nebulize (2.5 mg - 0.5 mg) 3 ml Route: Nebulizer; hb 18:28 Follow up: Response: No adverse reaction hb 18:32 Drug: Rocephin IV 1 grams Route: IV; Rate: calculated rate; Site: right antecubital; hb 18:40 Drug: Zithromax IVPB 500 mg Route: IVPB; Infused Over: 1 hrs; Site: right antecubital; hb Medication: 17:30 VIS not applicable for this client. hb Outcome: 19:26 Decision to Hospitalize by Provider. cp 21:11 Admitted to Med/surg accompanied by vicky, via stretcher, room 213, with chart, Report pf1 called to ASHVIN Head 21:11 Condition: stable 21:11 Instructed on the need for admit, Demonstrated understanding of instructions. 21:34 Patient left the ED. jb4 Signatures: Dispatcher [facility] Amy Urbano mr Brigette Herreraby, RN RN ss Jonah Montes PA PA cp Maricel Covarrubias, ASHVIN RN Devon Cook, ASHVIN RN jb4 Varsha Perez RN RN ll1 Alejandra sharpe RN RN pf1 Corrections: (The following items were deleted from the chart) 16:58 General: Appears uncomfortable, ill, Behavior is cooperative, appropriate for ll1 age, ll1 17: 16:58 Respiratory: Reports ll1 ll1 16:58 EENT: Reports nasal congestion ll1 ll1 17: 16:58 General: Reports chills for shaking ll1 ll1 17:45 16:57 Pulse 60bpm; Resp 18bpm; Pulse Ox 92% RA; Temp 99.1F Oral; Pain 0/10, Adult; ll1 hb
--- NOTE | 2022-08-30 19:27 | EDPHYS ---
Physician Documentation [facility] Name: Jani Taylor III Age: 72 yrs Sex: Male : 1950 Arrival Date: 08/30/2022 Time: 16:47 Bed 3 Private MD: Isidoro Helton C ED Physician Shmuel Ware HPI: 08/30 17:05 This 72 yrs old Male presents to ER via Ambulatory with complaints of Low O2. cp Historical: - Allergies: 16:57 No Known Allergies; ll1 - PMHx: 16:57 High Cholesterol; Hypertension; post polio syndrome; A fib; ll1 - PSHx: 16:57 foot SX; ll1 - Immunization history:: Client reports receiving the 2nd dose of the Covid vaccine. - Social history:: Smoking status: Patient denies any tobacco usage or history of. ROS: 17:10 Constitutional: Negative for body aches, chills, fever, poor PO intake. cp 17:10 Cardiovascular: Negative for chest pain, edema, palpitations. cp 17:10 Respiratory: Positive for cough, with no reported sputum, shortness of breath, at rest. 17:10 Abdomen/GI: Negative for abdominal pain, vomiting, diarrhea, constipation, black/tarry stool, rectal bleeding. 17:10 Neuro: Positive for general weakness, Negative for altered mental status, dizziness, headache, syncope. 17:10 Eyes: Negative for injury, pain, redness, and discharge. cp 17:10 ENT: Negative for drainage from ear(s), ear pain, sore throat, difficulty swallowing, cp difficulty handling secretions. 17:10 Skin: Negative for cellulitis, rash. 17:10 All other systems are negative. Exam: 17:15 ECG was reviewed by the Attending Physician. cp 17:17 Constitutional: The patient appears in no acute distress, alert, awake, cp non-diaphoretic, non-toxic, well developed, well nourished. 17:17 Head/Face: Normocephalic, atraumatic. cp 17:17 Eyes: Periorbital structures: appear normal, Conjunctiva: normal, no exudate, no injection, Sclera: no appreciated abnormality, Lids and lashes: appear normal, bilaterally. 17:17 ENT: External ear(s): are unremarkable, Ear canal(s): are normal, clear, TM's: dullness, bilaterally, Nose: is normal, Mouth: Lips: moist, Oral mucosa: pink and intact, moist, Posterior pharynx: Airway: no evidence of obstruction, patent, erythema, is not appreciated, exudate, is not appreciated. 17:17 Neck: ROM/movement: is normal, is supple, without pain, no range of motions limitations. 17:17 Chest/axilla: Inspection: normal, Palpation: is normal, no crepitus, no tenderness. 17:17 Cardiovascular: Rate: normal, Rhythm: regular, Edema: is not appreciated, JVD: is not appreciated. 17:17 Respiratory: the patient does not display signs of respiratory distress, Respirations: normal, no use of accessory muscles, no retractions, labored breathing, is not present, Breath sounds: bronchial sounds, that are mild, are heard diffusely, decreased breath sounds, that are mild, throughout, stridor, is not appreciated, wheezing: is not appreciated. 17:17 Abdomen/GI: Inspection: abdomen appears normal, Palpation: abdomen is soft and non-tender, in all quadrants. 17:17 Skin: cellulitis, is not appreciated, no rash present. 17:17 Neuro: Orientation: to person, place \T\ time. Mentation: is normal. Vital Signs: 16:57 BP 129 / 63; Pulse 60; Resp 18; Temp 99.1(O); Pulse Ox 92% on R/A; Pain 0/10; hb 17:53 BP 133 / 74; Pulse 57; Resp 16; Pulse Ox 95% on R/A; Pain 0/10; ss 19:00 BP 130 / 63; Pulse 64; Resp 15; Pulse Ox 100% on R/A; hb 19:47 BP 140 / 65; Pulse 60; Resp 16; Pulse Ox 95% on 2 lpm NC; jb4 20:51 BP 128 / 64; Pulse 60; Resp 18; Pulse Ox 94% on 2 lpm NC; jb4 16:57 Pain Scale: Adult hb 17:53 Pain Scale: Adult ss MDM: 16:58 Patient medically screened. cp 19:25 Data reviewed: vital signs, nurses notes, lab test result(s), EKG, radiologic studies, cp plain films. 19:25 Differential diagnosis: Bronchitis CHF exacerbation, pneumonia, Pneumothorax pulmonary cp edema, Pulmonary Embolism Sepsis Unstable Angina. Antibiotic administration: Rocephin and Zithromax given. Consideration of Admission/Observation Patient was admitted/placed on observation. Management of patient was discussed with the following: Primary Care Provider: DR Helton who will admit patient for inpatient treatment after discussion of labs, radiology studies. 08/30 17:00 Order name: CBC with Diff; Complete Time: 18:24 cp 08/30 18:24 Interpretation: Normal except: RBC 3.81; HGB 12.5; HCT 36.9; PLT 122; SUSANA% 83.5; LYM% cp 8.5; LYMA 0.5. 08/30 17:00 Order name: D-Dimer; Complete Time: 18:24 cp 08/30 17:00 Order name: Magnesium; Complete Time: 18:24 cp 08/30 17:00 Order name: NT PRO-BNP; Complete Time: 18:24 cp 08/30 17:00 Order name: PT-INR; Complete Time: 18:24 cp 08/30 17:00 Order name: Troponin HS; Complete Time: 18:24 cp 08/30 17:00 Order name: COVID-19/FLU A+B; Complete Time: 18:24 cp 08/30 19:24 Interpretation: SARSCOV2 RT PCR NEGATIVE. cp 08/30 17:00 Order name: Urinalysis W/Microscopic cp 08/30 17:00 Order name: Lactate w/ 2H reflex if indic.; Complete Time: 18:24 cp 08/30 17:00 Order name: Blood Culture Adult (2) cp 08/30 17:00 Order name: CMP; Complete Time: 18:24 cp 08/30 18:24 Interpretation: Normal except: NA 127; CL 96; GLUC 134; GFR 77; CA 7.8; ALB 3.2; A/G cp 1.0. 08/30 19:43 Order name: Urine Dipstick-Ancillary EDMS 08/30 19:56 Order name: Basic Metabolic Panel EDMS 08/30 19:56 Order name: Basic Metabolic Panel EDMS 08/30 19:56 Order name: CBC with Automated Diff EDMS 08/30 19:56 Order name: CBC with Automated Diff EDMS 08/30 19:56 Order name: NT PRO-BNP EDMS 08/30 19:56 Order name: NT PRO-BNP EDMS 08/30 19:56 Order name: Troponin High Sensitivity EDMS 08/30 17:23 Order name: XRAY Chest (1 view); Complete Time: 18:24 cp 08/30 17:00 Order name: EKG; Complete Time: 17:01 cp 08/30 19:56 Order name: Regular EDMS 08/30 17:00 Order name: Cardiac monitoring; Complete Time: 17:15 cp 08/30 17:00 Order name: EKG - Nurse/Tech; Complete Time: 17:15 cp 08/30 17:00 Order name: IV Saline Lock; Complete Time: 17:15 cp 08/30 17:00 Order name: Labs collected and sent; Complete Time: 17:15 cp 08/30 17:00 Order name: O2 Per Protocol; Complete Time: 17:15 cp 08/30 17:00 Order name: O2 Sat Monitoring; Complete Time: 17:15 cp EC:15 Rate is 60 beats/min. Rhythm is regular. MI interval is normal. QRS interval is normal. cp QT interval is normal. T waves are Inverted in lead aVR. Interpreted by me. Reviewed by me. Administered Medications: 17:22 Drug: DuoNeb Nebulize (2.5 mg - 0.5 mg) 3 ml Route: Nebulizer; hb 18:28 Follow up: Response: No adverse reaction hb 18:32 Drug: Rocephin IV 1 grams Route: IV; Rate: calculated rate; Site: right antecubital; hb 18:40 Drug: Zithromax IVPB 500 mg Route: IVPB; Infused Over: 1 hrs; Site: right antecubital; hb Disposition Summary: 08/30/22 19:26 Hospitalization Ordered Hospitalization Status: Inpatient Admission cp Provider: Isidoro Helton cp Location: [facility] (Inpatient) cp Condition: Stable cp Problem: new cp Symptoms: have improved cp Bed/Room Type: Standard cp Room Assignment: 213(08/30/22 20:50) cg Diagnosis - Pneumonia due to other specified infectious organisms cp - Hypoxemia cp Forms: - SBAR form cp - Medication Reconciliation Form cp Signatures: Dispatcher [employer] [facility] Jonah Montes PA PA cp Garcia, Cindy, RN RN cg Maricel Covarrubias RN RN hb Lewis, Lynsay, RN RN ll1 Corrections: (The following items were deleted from the chart) 20:50 19:26 cp cg
[2022-08-30 19:42] LABS: Urine Blood 2+ (Negative); Urine Glucose Negative (Negative); Urine Protein Negative (Negative); Urine pH 6.5 (5.0-7.0)
[2022-08-30] MEDS ORDERED: ACETAMINOPHEN 500 MG TAB PO PRN (19:48)
[2022-08-30] MEDS ORDERED: ONDANSETRON 4 MG/2 ML VIAL IV PRN (19:48)
[2022-08-30 19:53] LABS: Specific Gravity 1.012 (1.005-1.030); Urine Bacteria None Seen /HPF (<20); Urine Bilirubin NEGATIVE (Negative); Urine Blood 2+ (Negative); Urine Clarity Clear (Clear); Urine Color Light-Yellow (Yellow); Urine Glucose NEGATIVE (Negative); Urine Mucus Slight /HPF (None Seen); Urine Protein TRACE (Negative); Urine RBC 21-50 /HPF (None Seen); Urine Urobilinogen Normal (Normal)
[2022-08-30] MEDS: IPRATROPIUM BROM 0.5MG/2.5ML NEB SCH (20:00)
[2022-08-30] MEDS: ALBUTEROL 2.5 MG/3 ML NEB SOL NEB SCH (20:00)
[2022-08-30 21:54] VITALS: BMI 25.8
[2022-08-31] MEDS: DABIGATRAN 75 MG CAP PO SCH ×3 (00:10→20:45)
[2022-08-31] MEDS: ALBUTEROL 2.5 MG/3 ML NEB SOL NEB SCH ×4 (02:00→19:30)
[2022-08-31] MEDS: IPRATROPIUM BROM 0.5MG/2.5ML NEB SCH ×4 (02:00→19:30)
[2022-08-31 03:41] LABS: Absolute Lymphocytes (CBC) 0.5 K/uL (0.7-4.9); Hematocrit 32.8 % (39.6-49.0); Lymphocytes % 10.5 % (15.3-44.8); MCV 96.1 fL (80-100); MPV 9.9 fL (7.6-11.3); RBC Red Blood Cell Count 3.41 M/uL (4.33-5.43)
[2022-08-31 03:59] LABS: Potassium 3.6 mEq/L (3.5-5.1)
[2022-08-31] MEDS: DULOXETINE 30 MG CAP PO SCH (08:50)
[2022-08-31] MEDS: FINASTERIDE 5 MG TAB PO SCH (08:50)
[2022-08-31] MEDS: AMLODIPINE 5 MG TAB PO SCH (08:50)
[2022-08-31] MEDS: RIVASTIGMINE 4.6 MG/24 HR PATCH TD SCH (08:51)
[2022-08-31] MEDS: METOPROLOL TAR 25 MG TAB PO SCH ×2 (08:51→18:08)
[2022-08-31] MEDS: HOME MED 1 EA UNK (Linaclotide [Linzess] 290 MCG Capsule) PO SCH (08:51)
[2022-08-31] MEDS: CEFTRIAXONE 1,000 MG in NA CHLORIDE 0.9% 50 ML IVPB SCH ×2 (08:52→23:05)
[2022-08-31] MEDS ORDERED: PROPAFENONE HCL 425 MG PO SCH (09:00)
--- NOTE | 2022-08-31 17:36 | EKG ---
Test Date: 2022-08-30 Test Time: 17:09:00 Derrick Hand: TISH MEASUREMENT RESULTS: Intervals: Rate: 60 MN: 146 QRSD: 96 QT: 454 QTc: 454 [place]: P: -21 MN: 146 QRS: -8 T: 41 INTERPRETIVE STATEMENTS: Normal sinus rhythm Normal ECG Compared to ECG 05/26/2015 12:23:44 Sinus bradycardia no longer present First degree AV block no longer present Intraventricular conduction delay no longer present Electronically Signed On 08-31-22 17:34:58 CDT by Dioni Chowdary
[2022-08-31] MEDS ORDERED: NA CHLORIDE 0.9% 0 ML ONE (19:49)
[2022-08-31] MEDS: AZITHROMYCIN IV 250 MG in NA CHLORIDE 0.9% 250 ML IVPB SCH (20:44)
[2022-08-31] MEDS: TAMSULOSIN 0.4 MG SR CAP PO SCH (20:46)
[2022-08-31] MEDS: PROPAFENONE HCL 425 MG PO SCH (20:46)
[2022-08-31] MEDS: TRAZODONE 50 MG TABLET PO SCH (20:46)
[2022-08-31] MEDS: ATORVASTATIN 10 MG TAB PO SCH (20:46)
[2022-08-31] MEDS ORDERED: CEFTRIAXONE 1000 MG/VIAL ONE (23:10)
[2022-09-01] MEDS: ALBUTEROL 2.5 MG/3 ML NEB SOL NEB SCH ×4 (01:15→19:15)
[2022-09-01] MEDS: IPRATROPIUM BROM 0.5MG/2.5ML NEB SCH ×4 (01:15→19:15)
[2022-09-01] MEDS: METOPROLOL TAR 25 MG TAB PO SCH ×2 (05:30→17:09)
[2022-09-01] MEDS ORDERED: FUROSEMIDE 20 MG/ 2ML VIAL IV ONE (07:03)
[2022-09-01] MEDS ORDERED: POTASSIUM CL SA 10 MEQ TAB PO ONE (07:04)
--- NOTE | 2022-09-01 08:10 | RAD REPORT ---
EXAM DESCRIPTION: [facility] Pa And Lat (2 Views)09/01/2022 7:58 am CLINICAL HISTORY: pneumonia COMPARISON: Chest Single View dated 08/30/2022; Chest Pa And Lat (2 Views) dated 03/02/2017; Chest Pa And Lat (2 Views) dated 03/11/2016; CHEST SINGLE VIEW dated 03/10/2011 TECHNIQUE: PA and lateral views of the chest. FINDINGS: Patchy left basilar and perihilar airspace opacities, essentially unchanged. Right lung ba se shows improved aeration. No pneumothorax or effusion. The cardiomediastinal contours are unremarka ble. IMPRESSION: Patchy left basilar airspace opacities, essentially unchanged, concerning for pneumonia.
[2022-09-01] MEDS: DABIGATRAN 75 MG CAP PO SCH ×2 (08:21→20:46)
[2022-09-01] MEDS: RIVASTIGMINE 4.6 MG/24 HR PATCH TD SCH (08:21)
[2022-09-01] MEDS: CEFTRIAXONE 1,000 MG in NA CHLORIDE 0.9% 50 ML IVPB SCH (08:21)
[2022-09-01] MEDS: DULOXETINE 30 MG CAP PO SCH (08:22)
[2022-09-01] MEDS: PROPAFENONE HCL 425 MG PO SCH ×2 (08:22→20:45)
[2022-09-01] MEDS: AMLODIPINE 5 MG TAB PO SCH (08:22)
[2022-09-01] MEDS: FINASTERIDE 5 MG TAB PO SCH (08:22)
[2022-09-01] MEDS: HOME MED 1 EA UNK (Linaclotide [Linzess] 290 MCG Capsule) PO SCH (08:23)
--- NOTE | 2022-09-01 11:02 | HP ---
Date of Admission: 08/31/2022 Chief Complaint: Cough, congestion, and shortness of breath. History Of Present Illness: This is a 72-year-old male patient, came into emergency room with 3-4 days' history of increasing problem with cough, congestion, and shortness of breath. After he was evaluated in the emergency room, I was contacted requesting admission to the hospital with pneumonia problem. The patient was started on empiric antibiotic, which was ceftriaxone and azithromycin. His lowest oxygen saturation was 92% when he came into emergency room and oxygen was also started upon admission. When I saw him this morning, his was present with him. He denies any vomiting or diarrhea. Allergies: TO SIMVASTATIN CAUSING MYALGIA. Medications: Trazodone 50 mg daily at bedtime, tamsulosin 0.4 mg takes 2 capsules daily, finasteride 5 mg daily, propafenone 425 mg 2 times a day, rivastigmine 9.5 mg patch daily, Linzess 145 mg daily, duloxetine 30 mg daily, Pradaxa 150 mg 2 times a day, vitamin D3 5000 units daily, atorvastatin 10 mg daily, amlodipine 5 mg daily, and metoprolol tartrate 25 mg 2 times a day. Review of Systems: Respiratory: As mentioned above. All other systems reviewed and negative. 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 Past medical history also significant for hypertension, hyperlipidemia, paroxysmal atrial fibrillation, constipation, benign prostatic hypertrophy, anxiety, and insomnia. Social History: Prior history of smoking, not at present time. Use of alcohol, occasional beer. Family History: Father , had lung cancer. Mother has Parkinson disease. Past Surgical History: Bilateral leg surgery and bunion surgery. Physical Examination: Vital Signs: This morning; temperature 99.8, pulse 63, respiratory rate 18, blood pressure 153/65, O2 saturation 95% on 2 L nasal cannula oxygen. Height 5 feet 10 inches, weight 180 pounds. General: Awake, alert, oriented, not in distress. HEENT: Head atraumatic, normocephalic. Conjunctivae nonerythematous. Sclerae white. Mouth, no thrush or edema noted. Ears/Nose, no mass, lesion, discharge noted. Neck: Supple. No JVD, lymph nodes, bruit, thyromegaly noted. Lungs: Bilateral good equal air entry with presence of fine rales noted in both lung bases. Not using any accessory muscles of respiration. Heart: Normal heart sounds, no murmur or gallop. Abdomen: Soft, bowel sounds normal. No guarding, rigidity, tenderness, mass, hepatosplenomegaly, distention, or bruit noted. Extremities: No leg edema. No calf tenderness. Skin: No rash, ulcer, cellulitis. Lymphatics: No lymph node enlargement in neck, supraclavicular, infraclavicular region. Neuro: No focal neurological deficit. Chest: Unremarkable. External Genitalia: Deferred. Rectal: Deferred. Laboratory Data: Yesterday; white count 6.2, hemoglobin 12.5, platelets 122. Today; white count 5.1, hemoglobin 11.3, and a platelet count 115. Yesterday; sodium 127, potassium 3.8, chloride 96, bicarb 29, BUN 15, creatinine 1.02, glucose 134. Lactic acid 0.9. Liver function tests unremarkable. Troponin first set 7.9, second set 7.6. This morning; sodium 132, potassium 3.6, chloride 100, bicarb 28, BUN 14, creatinine 0.64, glucose 97. Urinalysis unremarkable except 2+ blood. Influenza A and B and COVID-19 test negative. Chest x-ray shows patchy bilateral basal infiltrates. Impression: 1. Pneumonia. 2. Paroxysmal atrial fibrillation. 3. Chronic anticoagulation therapy. 4. Thrombocytopenia. 5. Anemia, unspecified. 6. Hyponatremia. 7. Hypertension. 8. Mixed hyperlipidemia. 9. Benign prostatic hypertrophy. 10. Post-polio syndrome. Plan: Admit the patient to hospital for further evaluation and management of this problem. The patient is appropriate for inpatient and is expected to spend 2 midnights in hospital. We will go ahead and continue empiric antibiotic, which is ceftriaxone and azithromycin. Follow up on blood culture results. We will repeat chest x-ray tomorrow morning. For his atrial fibrillation, we will continue his antiarrhythmic medication, propafenone as he takes at home and also continue his anticoagulation therapy which is Pradaxa. For his hypertension, we will continue his antihypertensive medication which is amlodipine and metoprolol. For his hyperlipidemia, continue his atorvastatin per order. For his benign prostatic hypertrophy, the patient is on tamsulosin and finasteride and it will be continued. Details and plan of treatment discussed with the patient and the patient's . Possible discharge to go home in the next couple of days depending on his condition. MUNA/MODL Voice ID: [id number] MTDD
--- NOTE | 2022-09-01 19:20 | PN ---
Date of Progress Note: 09/01/2022 Subjective: The patient was seen this morning for followup. He was on nasal cannula oxygen 2 L/kateryna te as his oxygen level had dropped down to 88% yesterday. On 2 L nasal cannula, he is maintaining ad equate oxygenation. was present with him. No new complaints or problems reported. Objective: Vital Signs: Reviewed. HEENT: Unremarkable. Lungs: Clear to auscultation except presence of rales noted in the lower 1/3 of both lung hill and this is more/worse compared to yesterday. Heart: Heart sounds normal. Abdomen: Soft. Bowel sounds normal. No guarding, rigidity, tenderness, distention. Extremities: No leg edema. Laboratory Data: Chest x-ray was pending this morning. Impression: 1.Pneumonia. 2.Paroxysmal atrial fibrillation. 3.Hypertension. Plan: We will go ahead and continue current antibiotic which is ceftriaxone and azithromycin. One d ose of Lasix 20 mg IV x1 dose was ordered, to be given this morning and we will follow up on chest x- ray. I will see him tomorrow morning for followup. Possible discharge to go home either tomorrow or day after tomorrow depending on his condition. Details of plan and treatment discussed with the patient and his . MUNA/MODL Voice ID: [id number] Report ID: [id number]
[2022-09-01] MEDS: AZITHROMYCIN IV 250 MG in NA CHLORIDE 0.9% 250 ML IVPB SCH (20:45)
[2022-09-01] MEDS: TRAZODONE 50 MG TABLET PO SCH (20:46)
[2022-09-01] MEDS: ATORVASTATIN 10 MG TAB PO SCH (20:46)
[2022-09-01] MEDS: TAMSULOSIN 0.4 MG SR CAP PO SCH (20:46)
[2022-09-01] MEDS: PIPER TAZO 3.375 GM in NA CHLORIDE 0.9% 100 ML IV SCH (22:08)
[2022-09-02] MEDS: PIPER TAZO 3.375 GM in NA CHLORIDE 0.9% 100 ML IV SCH ×4 (01:00→23:45)
[2022-09-02] MEDS: ALBUTEROL 2.5 MG/3 ML NEB SOL NEB SCH ×4 (01:25→21:05)
[2022-09-02] MEDS: IPRATROPIUM BROM 0.5MG/2.5ML NEB SCH ×4 (01:25→21:05)
[2022-09-02 04:59] LABS: Hematocrit 32.3 % (39.6-49.0); Lymphocytes % 22.5 % (15.3-44.8); MCV 95.7 fL (80-100); MPV 9.5 fL (7.6-11.3); RBC Red Blood Cell Count 3.37 M/uL (4.33-5.43)
[2022-09-02 05:05] LABS: Magnesium 2.2 mg/dL (1.6-2.4); Potassium 4.4 mEq/L (3.5-5.1)
[2022-09-02] MEDS: METOPROLOL TAR 25 MG TAB PO SCH ×2 (06:03→17:47)
[2022-09-02] MEDS: HOME MED 1 EA UNK (Linaclotide [Linzess] 290 MCG Capsule) PO SCH (09:00)
[2022-09-02] MEDS: RIVASTIGMINE 4.6 MG/24 HR PATCH TD SCH (09:56)
[2022-09-02] MEDS: DULOXETINE 30 MG CAP PO SCH (09:57)
[2022-09-02] MEDS: PROPAFENONE HCL 425 MG PO SCH ×2 (09:57→20:45)
[2022-09-02] MEDS: AMLODIPINE 5 MG TAB PO SCH (09:57)
[2022-09-02] MEDS: FINASTERIDE 5 MG TAB PO SCH (09:57)
[2022-09-02] MEDS: DABIGATRAN 75 MG CAP PO SCH ×2 (09:58→20:43)
[2022-09-02] MEDS: AZITHROMYCIN IV 250 MG in NA CHLORIDE 0.9% 250 ML IVPB SCH (20:41)
[2022-09-02] MEDS: ATORVASTATIN 10 MG TAB PO SCH (20:43)
[2022-09-02] MEDS: TRAZODONE 50 MG TABLET PO SCH (20:43)
[2022-09-02] MEDS: TAMSULOSIN 0.4 MG SR CAP PO SCH (20:43)
[2022-09-03] MEDS: ALBUTEROL 2.5 MG/3 ML NEB SOL NEB SCH ×4 (02:00→19:50)
[2022-09-03] MEDS: IPRATROPIUM BROM 0.5MG/2.5ML NEB SCH ×4 (02:00→19:50)
[2022-09-03] MEDS: METOPROLOL TAR 25 MG TAB PO SCH ×2 (05:38→17:35)
[2022-09-03] MEDS: PIPER TAZO 3.375 GM in NA CHLORIDE 0.9% 100 ML IV SCH ×3 (05:39→22:35)
--- NOTE | 2022-09-03 06:53 | PN ---
Date of Progress Note: 09/02/2022 Subjective: Patient was seen this morning for followup. No new complaints or problems reported. Adrian lau lying in bed, not in distress. His was with him at bedside. Objective: Vital Signs: Reviewed. HEENT: Unremarkable. Lungs: Bilateral good equal air entry with presence of rales noted in lower 1/3 of both lung hill unchanged from yesterday. Not using any accessory muscles of respiration. Heart: Sounds normal. Abdomen: Soft. Bowel sounds normal. No guarding, rigidity, tenderness, distention. Extremities: No leg edema. Laboratory Data: White count 4.5, hemoglobin 11.2, platelets 124. Sodium 136, potassium 4.4, chlori de 102, bicarb 33, BUN 15, creatinine 0.91, glucose 100, magnesium 2.2. Impression: 1.Pneumonia. 2.Anemia, unspecified. 3.Hypertension. 4.Hyperlipidemia. Plan: We will go ahead and continue azithromycin. As of last night, we discontinued his ceftriaxone and started him on Zosyn considering he was still having low-grade fever. Today, his lung findings are unchanged from yesterday. Yesterday's chest x-ray did not show any change compared to initial [facility] x-ray. Our plan is to repeat another chest x-ray tomorrow, monitor his vital signs. Depending o n his clinical status and chest x-ray, we will make further decision if we can possibly discharge him to go home tomorrow or not. Details and plan of treatment discussed with the patient and his . MUNA/MODL Voice ID: [id number] Report ID: [id number]
--- NOTE | 2022-09-03 08:49 | RAD REPORT ---
EXAM DESCRIPTION: CT - Thorax Wo Con - 09/03/2022 8:08 am CLINICAL HISTORY: pneumonia COMPARISON: Chest Pa And Lat (2 Views) dated 09/03/2022; Chest Pa And Lat (2 Views) dated 09/01/2022; Chest Single View dated 08/30/2022 TECHNIQUE: Axial thin cut images of the chest were obtained without IV contrast. Multiplanar reforma ts were generated and reviewed. All CT scans are performed using dose optimization technique as appropriate and may include automated exposure control or mA/KV adjustment according to patient size. FINDINGS: Patchy airspace opacities with areas of consolidation and air bronchogram in the left lowe r lobe. Similar mild alveolar opacities in the posterior segments of the left upper lobe and medial b stephanie right lower lobe. No pleural thickening. Trace left pleural effusion. Mild linear middle lobe an d basal atelectatic changes on the right. No pneumothorax. No abnormal mediastinal or hilar masses or lymphadenopathy seen. No significant aortic or pulmonary a rtery findings. Assessment is limited in the absence of IV contrast. No chest wall mass or abnormal axillary lymphadenopathy. Evaluation of the solid abdominal structures reveals no suspicious findings. IMPRESSION: Airspace opacities including areas of consolidations most pronounced in the left lower l obe with similar mild scattered opacities in the posterior left upper lobe and medial basal right low er lobe, concerning for pneumonia. Trace left pleural effusion.
[2022-09-03] MEDS: HOME MED 1 EA UNK (Linaclotide [Linzess] 290 MCG Capsule) PO SCH (09:00)
--- NOTE | 2022-09-03 10:30 | RAD REPORT ---
EXAM DESCRIPTION: [facility] Pa And Lat (2 Views)09/03/2022 8:02 am CLINICAL HISTORY: pneumonia COMPARISON: Chest Pa And Lat (2 Views) dated 09/01/2022; Chest Single View dated 08/30/2022; Chest Pa And Lat (2 Views) dated 03/02/2017; Chest Pa And Lat (2 Views) dated 03/11/2016 TECHNIQUE: PA and lateral views of the chest. FINDINGS: Stable to slightly improved patchy left lower lobe airspace opacities, concerning for pneu monia. No pneumothorax or effusion. The cardiomediastinal contours are unremarkable. IMPRESSION: Stable to slightly improved patchy left lower lobe airspace opacities, concerning for pn eumonia.
[2022-09-03] MEDS: DULOXETINE 30 MG CAP PO SCH (10:47)
[2022-09-03] MEDS: RIVASTIGMINE 4.6 MG/24 HR PATCH TD SCH (10:47)
[2022-09-03] MEDS: AMLODIPINE 5 MG TAB PO SCH (10:47)
[2022-09-03] MEDS: PROPAFENONE HCL 425 MG PO SCH ×2 (10:48→20:39)
[2022-09-03] MEDS: DABIGATRAN 75 MG CAP PO SCH ×2 (10:48→20:38)
[2022-09-03] MEDS: FINASTERIDE 5 MG TAB PO SCH (10:48)
[2022-09-03] MEDS ORDERED: METHYLPREDNISOLONE 40 MG INJ IV ONE (12:26)
--- NOTE | 2022-09-03 12:28 | ECHO ---
HEIGHT: 5 ft 10 in WEIGHT: 180 lb 0 oz DATE OF STUDY: 09/03/[address]: Gabo Helton MD 2-DIMENSIONAL: YES M.MODE: YES DOPPLER: YES COLOR FLOW: YES TDS: PORTABLE: YES DEFINITY: BUBBLE STUDY: DIAGNOSIS: EVALUATE LEFT VENTRICULAR EJECTION FRACTION CARDIAC HISTORY: CATHERIZATION: NO SURGERY: NO PROSTHETIC VALVE: NO PACEMAKER: NO MEASUREMENTS (cm) DIASTOLIC (NORMALS) SYSTOLIC (NORMALS) IVSd 1.0 (0.6-1.2) LA Diam 2.9 (1.9-4.0) LVEF 62% LVIDd 4.4 (3.5-5.7) LVIDs 3.0 (2.0-3.5) %FS 33% LVPWd 1.1 (0.6-1.2) Ao Diam 2.7 (2.0-3.7) 2 DIMENSIONAL ASSESSMENT: RIGHT ATRIUM: NORMAL LEFT ATRIUM: NORMAL RIGHT VENTRICLE: NORMAL LEFT VENTRICLE: NORMAL TRICUSPID VALVE: MILD TRICUSPID REGURGITATION MITRAL VALVE: MILD MITRAL REGURGITATION PULMONIC VALVE: MILD PULMONIC INSUFFICIENCY AORTIC VALVE: NORMAL PERICARDIAL EFFUSION: NONE AORTIC ROOT: NORMAL LEFT VENTRICULAR WALL MOTION: NORMAL DOPPLER/COLOR FLOW: MILD MITRAL REGURGITATION, TRICUSPID REGURGITATION, AORTIC INSUFFICIECNY, PULMONIC INSUFFICIENCY COMMENTS: 1. NORMAL LEFT VENTRICULAR EJECTION FRACTION 60-65% 2. NORMAL WALL MOTION 3. MILD MITRAL REGURGITATION, MILD AORTIC INSUFFICIENCY 4. MILD TRICUSPID REGURGITATION, PULMONIC INSUFFICIENCY TECHNOLOGIST: JOANA MORA
[2022-09-03] MEDS: ATORVASTATIN 10 MG TAB PO SCH (20:38)
[2022-09-03] MEDS: AZITHROMYCIN IV 250 MG in NA CHLORIDE 0.9% 250 ML IVPB SCH (20:38)
[2022-09-03] MEDS: TAMSULOSIN 0.4 MG SR CAP PO SCH (20:38)
[2022-09-03] MEDS: TRAZODONE 50 MG TABLET PO SCH (20:38)
--- NOTE | 2022-09-03 22:14 | PN ---
Date of Progress Note: 09/03/2022 Subjective: The patient was seen this morning for followup. His was present with him at bedsid e and reported that the patient had lot of wheezing last night, cough, and chest congestion. Yesterd ay he ambulated well. Objective: Vital Signs: Reviewed. HEENT: Unremarkable. Lungs: Bilateral good equal air entry. Presence of rales noted in bilateral lower one third lung fi elds, but it is less today compared to yesterday in the lower one third of both lung hill, but I vu ve heard some fine crackles in the bilateral upper lung hill also today. Not using any accessory m uscles of respiration. Heart: Sounds normal. Abdomen: Soft. Bowel sounds normal. No guarding, rigidity, tenderness, or distention. Extremities: No leg edema. Laboratory Data: Chest x-ray done today shows slight improvement in pneumonia compared to before. C AT scan of the chest was done without contrast and shows bilateral pneumonia involving right lower lo be, left upper lobe, and left lower lobe. Echocardiogram was done today and results pending. Impression: 1.Pneumonia. 2.Atrial fibrillation. Plan: Continue current antibiotic. The patient is afebrile now. We will continue oxygen replacemen t therapy. One dose of Solu-Medrol 40 mg IV was ordered after CAT scan result was reviewed. I will see him tomorrow for followup and plan is to possibly discharge him to go home tomorrow depending on his cond ition. MUNA/MODL Voice ID: [id number] Report ID: [id number]
[2022-09-04] MEDS: ALBUTEROL 2.5 MG/3 ML NEB SOL NEB SCH (02:25)
[2022-09-04] MEDS: IPRATROPIUM BROM 0.5MG/2.5ML NEB SCH (02:25)
[2022-09-04 05:07] VITALS: O2SAT 91
[2022-09-04] MEDS: METOPROLOL TAR 25 MG TAB PO SCH (05:26)
[2022-09-04] MEDS: PIPER TAZO 3.375 GM in NA CHLORIDE 0.9% 100 ML IV SCH (05:27)
[2022-09-04] MEDS ORDERED: METHYLPREDNISOLONE 40 MG INJ IV ONE (07:48)
[2022-09-04] MEDS: FINASTERIDE 5 MG TAB PO SCH (08:26)
[2022-09-04] MEDS: RIVASTIGMINE 4.6 MG/24 HR PATCH TD SCH (08:26)
[2022-09-04] MEDS: DULOXETINE 30 MG CAP PO SCH (08:27)
[2022-09-04] MEDS: DABIGATRAN 75 MG CAP PO SCH (08:27)
[2022-09-04] MEDS: PROPAFENONE HCL 425 MG PO SCH (08:27)
[2022-09-04] MEDS: HOME MED 1 EA UNK (Linaclotide [Linzess] 290 MCG Capsule) PO SCH (08:28)
[2022-09-04] MEDS: AMLODIPINE 5 MG TAB PO SCH (08:44)
[2022-09-04 08:45] VITALS: BP 163/73
[2022-09-04 08:50] VITALS: TEMP 97.9
--- NOTE | 2022-09-09 16:57 | DS ---
Date of Discharge: 09/04/2022 Disposition: Discharged to go home. Physical Examination: HEENT: Unremarkable. Lungs: Bilateral good equal air entry. Very minimal basal rales noted, overall much better than bef ore. Not using any accessory muscles of respiration. Heart: Sounds normal. Abdomen: Soft. Bowel sounds normal. No guarding, rigidity, tenderness, distention. Extremities: No leg edema. Laboratory Data: Upon admission on 08/30/2022; white count 6.2, hemoglobin 12.5, and a platelet coun t of 122. Last CBC on 09/02/2022 shows white count 4.5, hemoglobin 11.2, platelets 124. On admissio n on 08/30; sodium 127, potassium 3.8, chloride 96, bicarb 29, BUN 15, creatinine 1.02, glucose 134. Liver function tests unremarkable. Last chemistry on 09/02 shows sodium 136, potassium 4.4, chlor micheal 102, bicarb 33, BUN 15, creatinine 0.91, glucose 100, magnesium 2.2. Final Diagnoses: 1.Pneumonia. 2.Anemia. 3.Thrombocytopenia. 4.Hyponatremia. 5.Acute respiratory failure with hypoxia. 6.Paroxysmal atrial fibrillation. 7.Chronic anticoagulation therapy. 8.Hypertension. 9.Mixed hyperlipidemia. 10.Benign prostatic hypertrophy. 11.Post-polio syndrome. Hospital Course: This is a 72-year-old pleasant male patient, admitted to the hospital with cough, c ongestion, shortness of breath. Please see dictated H and P for more information. After the patient was evaluated in the ER, he was admitted to the hospital with pneumonia problem. The patient receiv ed IV antibiotic therapy during this hospitalization, oxygen replacement therapy, nebulizer treatment , etc. We had to change his antibiotic because with initial antibiotic he did not respond quite as w ell. After we changed antibiotic, he became afebrile. He continued to require some oxygen replaceme nt in the beginning, but subsequently we were able to discontinue oxygen and he was able to maintain adequate oxygenation on room air. Because of lack of adequate improvement and increased rales at pietro e point, we did add IV steroid and that actually did help him very well to provide symptomatic relief with improvement in shortness of breath, wheezing, and crackles that he had in his lung. He has bee n ambulating well. Echocardiogram shows normal ejection fraction with evidence of regurgitation, whi ch is mild and no need for any further intervention for this. CAT scan of the chest has shown presen ce of pneumonia in left upper lobe, left lower lobe, and right lower lobe. Cultures remained negativ e. Overall, the patient was discharged to go home in improved and stable condition today. Discharge Medications And Instructions: 1.Continue prior home medications. 2.Take following new medications. 3.Azithromycin 250 mg 1 tablet by mouth daily for 1 week and Augmentin 875 mg 1 tablet by mouth 2 ti mes a day for 1 week. 4.Follow up at my office next week. MUNA/MODL Voice ID: [id number] Report ID: [id number]
== END 2022-09-04 09:23 | disposition home or self-care (01) | DRG 194 ==
LOC: ER 16:41 → ERHOLD 19:45 → 2ND 21:04
PROVIDERS: ADMIT Internal Medicine; ATTEND Internal Medicine
DX: J18.9 Pneumonia, unspecified organism (principal); E87.1 Hypo-osmolality and hyponatremia; I10 Essential (primary) hypertension; I48.0 Paroxysmal atrial fibrillation; D69.6 Thrombocytopenia, unspecified; D64.9 Anemia, unspecified; E78.2 Mixed hyperlipidemia; G14 Postpolio syndrome; N40.0 Benign prostatic hyperplasia without lower urinary tract symptoms; Z88.8 Allergy status to other drugs, medicaments and biological substances; Z79.01 Long term (current) use of anticoagulants; Z20.822 Contact with and (suspected) exposure to COVID-19
CPT/HCPCS: 0240U; 36415; 71045; 71046; 71250; 80048; 80053; 81001; 81003; 83605; 83735; 83880; 84484; 85025; 85379; 85610; 87040; 87070; 87205; 93005; 93306; 94640; 94760; 96374; 96375; 99285; J1940; J2543; J2920; J7050; J7613; J7644

== ENCOUNTER 2023-11-13 17:46 | Emergency (ER) | payer OTHER ==
[2023-11-13] MEDS ORDERED: MORPHINE 4 MG/ML SYR ONE (18:14)
[2023-11-13] MEDS ORDERED: ONDANSETRON 4 MG/2 ML VIAL ONE (18:14)
--- NOTE | 2023-11-13 18:15 | RAD REPORT ---
EXAM DESCRIPTION: RAD - Chest Single View - 11/13/2023 6:10 pm CLINICAL HISTORY: right side neck pain COMPARISON: <Comparisons> FINDINGS: Lines: Left subclavian approach with pacemaker . Lungs: No evidence of edema or pneumonia. Pleural: No significant pleural effusions or pneumothorax. Cardiac: The heart size is within normal limits. Mediastinum: Within normal limits. Bones: No acute fractures. Other: None IMPRESSION: No acute cardiopulmonary disease.
[2023-11-13 18:59] LABS: Absolute Eosinophils 0.1 K/uL (0-0.5); Absolute Neutrophil 6.6 K/uL (1.8-8.0); Basophils % 0.3 % (0-1.3); Eosinophils % 1.3 % (0-4.4); Hematocrit 40.4 % (39.6-49.0); Hemoglobin 13.6 g/dL (13.6-17.9); Lymphocytes % 11.3 % (15.3-44.8); MCH 32.8 pg (27.0-35.0); MCHC 33.5 g/dL (32.0-36.0); MCV 97.8 fL (80-100); MPV 9.4 fL (7.6-11.3); Monocytes % 11.8 % (3.3-12.3); Neutrophils % 75.3 % (41.7-73.7); Platelets 167 thou/uL (152-406); RBC Red Blood Cell Count 4.13 M/uL (4.33-5.43); Red Cell Distribution Width 12.7 % (12.1-15.2)
[2023-11-13 19:14] LABS: Monoscreen POS (NEG)
[2023-11-13 19:17] LABS: Anion Gap 5.6 mEq/L (5.0-15.0); Potassium 3.6 mEq/L (3.5-5.1); Troponin High Sensitivity 7.8 pg/mL (<58.9)
--- NOTE | 2023-11-13 19:46 | RAD REPORT ---
EXAM DESCRIPTION: CT - Soft Tissue Neck W/Contr CLINICAL HISTORY: right side neck pain and swelling COMPARISON: CT HEAD CSPINE MPR WO CONTRAST dated 04/22/[address] scans are performed using dose optimization technique as appropriate and may includ e automated exposure control or mA/KV adjustment according to patient size. FINDINGS: Nasopharyngeal tissues are normal in appearance. Fossa Rosenmller are normal. Parapharyngeal fat triangles are symmetric. Tongue base structures are normal. Epiglottis and aryepiglottic folds are normal. Piriform sinuses are well aerated. The vocal cords are normal in appearance. Salivary glands are normal in appearance. Upper lung hill are clear. Intracranial atherosclerosis. Left upper chest wall pacemaker. Expansile process in the left maxillary sinus with mixed low and hyperattenuation. There is outward b owing of the medial wall the left maxillary sinus. Moderate to severe cervical spondylosis with varying degrees of neural foraminal narrowing. This is m ost pronounced on the left side. IMPRESSION: 1. No acute soft tissue abnormality within the neck. 2. Expansile left maxillary sinus process could represent a papilloma. Recommend ENT referral for fur ther evaluation.
[2023-11-13] MEDS ORDERED: NA CHLORIDE 0.9% 100 ML ONE (19:51)
[2023-11-13] MEDS ORDERED: METHOCARBAMOL 1,000 MG/10 ML VIAL ONE (19:51)
[2023-11-13] MEDS ORDERED: KETOROLAC 30 MG/ML INJ ONE (20:26)
[2023-11-13] MEDS ORDERED: dexAMETHasone 10 MG/ML VIAL ONE (20:26)
--- NOTE | 2023-11-13 21:14 | EDPHYS ---
Physician Documentation [facility] Name: Jani Taylor III Age: 73 yrs Sex: Male : 1950 Arrival Date: 11/13/2023 Time: 17:46 Bed 7 Private MD: ED Physician Jonah Thompson HPI: 11/12 18:00 This 73 yrs old Male presents to ER via Ambulatory with complaints of Came from cp nextlevel, Neck Injury. 18:00 The patient or guardian complains of decreased range of motion, pain, that is acute. cp The symptoms are located right side of neck. Onset: The symptoms/episode began/occurred 3 day(s) ago, and became worse today. Associated signs and symptoms: Pertinent negatives: chills, constipation, fever, numbness, weakness. 18:00 The pain does not radiate. Modifying factors: the symptoms are aggravated by turning cp head. Severity of symptoms: in the emergency department the symptoms are unchanged, despite home interventions. Historical: - Allergies: 17:55 No Known Allergies; cm10 - PMHx: 17:55 High Cholesterol; Hypertension; Post Polio Syndrome; a fib; cm10 - PSHx: 17:55 foot sx; cm10 - Immunization history:: Adult Immunizations up to date. - Infectious Disease History:: Denies. - Social history:: Smoking status: Patient denies any tobacco usage or history of. ROS: 18:05 Neck: Positive for pain with movement, pain at rest, stiffness, tenderness, Negative cp for bony tenderness, 18:05 Constitutional: Negative for body aches, chills, fever, poor PO intake, cp 18:05 ENT: Negative for drainage from ear(s), ear pain, difficulty swallowing, difficulty handling secretions, 18:05 Cardiovascular: Negative for chest pain, edema, palpitations, 18:05 Neuro: Negative for altered mental status, dizziness, headache, numbness, syncope, near syncope, weakness, 18:05 All other systems are negative, Exam: 19:00 Head/Face: Normocephalic, atraumatic. cp 19:00 Constitutional: The patient appears in no acute distress, alert, awake, non-diaphoretic, non-toxic, well developed, well nourished, uncomfortable, 19:00 Eyes: Periorbital structures: appear normal, Conjunctiva: normal, no exudate, no injection, Sclera: no appreciated abnormality, Lids and lashes: appear normal, bilaterally, 19:00 ENT: External ear(s): are unremarkable, Ear canal(s): are normal, clear, TM's: dullness, bilaterally, Nose: is normal, Mouth: Lips: moist, Oral mucosa: pink and intact, moist, Posterior pharynx: Airway: no evidence of obstruction, patent, erythema, is not appreciated, exudate, is not appreciated, 19:00 Neck: C-spine: vertebral tenderness, is not appreciated, crepitus, is not appreciated, ROM/movement: pain, that is moderate, with rotation to the left, with rotation to the right, limited range of motion, that is moderate, when rotating to the right, when rotating to the left, Meningeal signs: are not present, nuchal rigidity, is not appreciated, 19:00 Chest/axilla: Inspection: normal, Palpation: is normal, no crepitus, no tenderness, 19:00 Cardiovascular: Rate: normal, Pulses: Pulses are 2+ in right radial artery and left radial artery. Edema: is not appreciated, JVD: is not appreciated, 19:00 Respiratory: the patient does not display signs of respiratory distress, Respirations: normal, no use of accessory muscles, no retractions, labored breathing, is not present, Breath sounds: are clear throughout, no decreased breath sounds, no stridor, no wheezing, 19:00 Abdomen/GI: Inspection: abdomen appears normal, Palpation: abdomen is soft and non-tender, in all quadrants, 19:00 Back: pain, is absent, ROM is normal, 19:00 Skin: cellulitis, is not appreciated, no rash present. 19:00 Neuro: Orientation: to person, place \T\ time. Mentation: is normal, Motor: moves all fours, strength is normal, Sensation: is normal, Gait: is steady, Vital Signs: 17:54 BP 165 / 94; Pulse 79; Resp 18; Temp 97.9; Pulse Ox 100% ; Weight 79.38 kg; Height 5 cm10 ft. 10 in. ; Pain 8/10; 18:45 BP 160 / 85; Pulse 59; Resp 18; Pulse Ox 99% on R/A; ph 19:45 BP 149 / 75; Pulse 60; Resp 18; Pulse Ox 96% on R/A; km8 21:18 BP 145 / 73; Pulse 62; Resp 16; Pulse Ox 99% ; bp 17:54 Body Mass Index 25.11 (79.38 kg, 177.8 cm) cm10 17:54 Pain Scale: Adult cm10 MDM: 17:58 Patient medically screened. 19:00 Differential diagnosis: C-Spine Fracture Spondylolisthesis Spondylosis subluxation, cp torticollis, Unstable Vertebral Fracture abscess. 21:13 Data reviewed: vital signs, nurses notes, lab test result(s), EKG, radiologic studies, cp CT scan, and as a result, I will discharge patient. 21:13 I considered the following discharge prescriptions or medication management in the emergency department Medications were administered in the Emergency Department. See MAR. Counseling: I had a detailed discussion with the patient and/or guardian regarding the historical points, exam findings, and any diagnostic results supporting the discharge/admit diagnosis, lab results, radiology results, the need for outpatient follow up, a family practitioner, to return to the emergency department if symptoms worsen or persist or if there are any questions or concerns that arise at home. Response to treatment: the patient's symptoms have mildly improved after treatment, and as a result, I will discharge patient. 11/12 17:59 Order name: Basic Metabolic Panel; Complete Time: 19:38 11/12 20:08 Interpretation: Normal except: NA 135; CRE 0.69. 11/12 17:59 Order name: CBC with Diff; Complete Time: 19:38 11/12 17:59 Order name: Magnesium; Complete Time: 19:38 11/12 17:59 Order name: Troponin HS; Complete Time: 19:38 11/12 17:59 Order name: [place] Screen Profile; Complete Time: 19:38 11/12 17:59 Order name: Strep 11/12 19:23 Order name: Throat Culture EDMS 11/12 17:59 Order name: XRAY Chest (1 view); Complete Time: 18:26 11/12 18:27 Order name: CT Soft Tissue Neck W/contr; Complete Time: 20:07 11/12 20:08 Interpretation: Report reviewed. 11/12 17:59 Order name: EKG; Complete Time: 18:00 11/12 17:59 Order name: Cardiac monitoring; Complete Time: 18:45 cp 11/12 17:59 Order name: EKG - Nurse/Tech; Complete Time: 18:46 cp 11/12 17:59 Order name: IV Saline Lock; Complete Time: 18:46 cp 11/12 17:59 Order name: Labs collected and sent; Complete Time: 18:46 cp 11/12 17:59 Order name: O2 Per Protocol; Complete Time: 18:46 cp 11/12 17:59 Order name: O2 Sat Monitoring; Complete Time: 18:46 cp Administered Medications: 18:45 Drug: morphine IVP or IV 4 mg IVP once over 4 mins Route: IVP; Infused Over: 4 mins; ph Site: right antecubital; 18:45 Drug: Ondansetron IVP 4 mg IVP once; over 2 minutes Route: IVP; Site: right antecubital;ph 19:54 Drug: Methocarbamol IVPB 1 grams IVPB once over 1 hrs; (mix in NS 100 mL) Route: IVPB; bp Infused Over: 1 hrs; Site: right antecubital; 20:31 Drug: Ketorolac IVP 15 mg IVP once Route: IVP; Site: right forearm; bp 20:31 Drug: Decadron - Dexamethasone IVP 10 mg IVP once Route: IVP; Site: right forearm; bp Disposition Summary: 11/13/23 21:14 Discharge Ordered Notes: Location: Home cp Problem: new cp Symptoms: have improved cp Condition: Stable cp Diagnosis - Cervicalgia cp - Infectious mononucleosis, unspecified without complication cp Followup: cp - With: Private Physician - When: 2 - 3 days - Reason: Recheck today's complaints Discharge Instructions: - Discharge Summary Sheet cp - Infectious Mononucleosis cp - Musculoskeletal Pain cp - Heat Therapy cp - Neck Exercises cp Forms: - Medication Reconciliation Form cp - Antibiotic Education cp - Prescription Opioid Use cp - Patient Portal Instructions cp - Leadership Thank You Letter cp Prescriptions: - Medrol (Ayo) 4 mg Oral Tablets, Dose Pack - take 1 tablet ORAL route as directed - follow package instructions; 1 packet; cp Refills: 0, Product Selection Permitted - methocarbamol 750 mg Oral tablet - take 1 tablet ORAL route every 6 hours; 30 tablet; Refills: 0, Product cp Selection Permitted Signatures: Dispatcher [employer] Marlene Toledo, RN RN ph Jonah Montes PA PA cp Justo Magallanes, RN RN Chari Brown RN RN cm10 Corrections: (The following items were deleted from the chart) 18:00 18:00 BASIC METABOLIC PANEL+C.LAB.BRZ ordered. [facility] 18:00 18:00 [facility] MAGNESIUM+C.LAB.BRZ ordered. [facility] 18:00 18:00 Troponin High Sensitivity+C.LAB.BRZ ordered. [facility] 18:00 18:00 MONO SCREEN PROFILE+I.LAB.BRZ ordered. [facility] 18:00 18:00 Group A Streptococcus Rapid Sc+BA.LAB.BRZ ordered. [facility] 11/13 21:18 21:17 I considered the following discharge prescriptions or medication management in cp the emergency department Medications were administered in the Emergency Department. See [facility] :18 21:17 Counseling: I had a detailed discussion with the patient and/or guardian cp regarding the historical points, exam findings, and any diagnostic results supporting the discharge/admit diagnosis, lab results, radiology results, the need for outpatient follow up, a family practitioner, to return to the emergency department if symptoms worsen or persist or if there are any questions or concerns that arise at home, 18 21:17 Response to treatment: the patient's symptoms have mildly improved after cp treatment, and as a result, I will discharge patient,
--- NOTE | 2023-11-13 21:14 | ER ---
Nurse's Notes [facility] Name: Jani Taylor III Age: 73 yrs Sex: Male : 1950 Arrival Date: 11/13/2023 Time: 17:46 Bed 7 Private MD: Diagnosis: Cervicalgia;Infectious mononucleosis, unspecified without complication Presentation: 11/12 17:54 Chief complaint: Patient states: Neck pain that is worse on the right side onset 3 days cm10 ago. Pt states that he was sent from urgent care. Pt also reports sore throat. Coronavirus screen: Client denies travel out of the [place] in the last 14 days. At this time, the client does not indicate any symptoms associated with coronavirus-19. Ebola Screen: Patient denies travel to an Ebola-affected area in the 21 days before illness onset. No symptoms or risks identified at this time. Initial Sepsis Screen: Does the patient meet any 2 criteria? No. Patient's initial sepsis screen is negative. Does the patient have a suspected source of infection? No. Patient's initial sepsis screen is negative. Risk Assessment: Do you want to hurt yourself or someone else? Patient reports no desire to harm self or others. Onset of symptoms was November 13, 2023. 17:54 Method Of Arrival: Ambulatory cm10 17:54 Acuity: KYLE 3 cm10 Triage Assessment: 17:56 General: Appears in no apparent distress. comfortable, Behavior is calm, cooperative. cm10 Neuro: No deficits noted. Level of Consciousness is awake, alert, obeys commands, Oriented to person, place, time, situation, Appropriate for age. Respiratory: No deficits noted. Airway is patent Respiratory effort is even, unlabored, Respiratory pattern is regular, symmetrical. Historical: - Allergies: 17:55 No Known Allergies; cm10 - PMHx: 17:55 High Cholesterol; Hypertension; Post Polio Syndrome; a fib; cm10 - PSHx: 17:55 foot sx; cm10 - Immunization history:: Adult Immunizations up to date. - Infectious Disease History:: Denies. - Social history:: Smoking status: Patient denies any tobacco usage or history of. Screenin:44 [facility] ED Fall Risk Assessment (Adult) History of falling in the last 3 months, ph including since admission No falls in past 3 months (0 pts) Confusion or Disorientation No (0 pts) Intoxicated or Sedated No (0 pts) Impaired Gait No (0 pts) Mobility Assist Device Used No (0 pt) Altered Elimination No (0 pt) Score/Fall Risk Level 0 - 2 = Low Risk Oriented to surroundings, Maintained a safe environment, Hourly rounding (assess needs \T\ fall precautionary measures) done. Abuse screen: Denies threats or abuse. Denies injuries from another. Nutritional screening: No deficits noted. Tuberculosis screening: No symptoms or risk factors identified. Assessment: 18:43 General: Appears in no apparent distress. comfortable, well groomed, Behavior is calm, ph cooperative, appropriate for age, Denies fever. Pain: Complains of pain in right posterior aspect of neck, right lateral aspect of neck and right anterior aspect of neck. Neuro: Level of Consciousness is awake, alert, obeys commands, Oriented to person, place, time, situation. Cardiovascular: Capillary refill < 3 seconds in bilateral fingers Patient's skin is warm and dry. Respiratory: Airway is patent Respiratory effort is even, unlabored. GI: No signs and/or symptoms were reported involving the gastrointestinal system. EENT: Reports nasal congestion pain when swallowing. Derm: Skin is pink, warm \T\ dry. 19:20 Reassessment: Patient appears in no apparent distress at this time. No changes from km8 previously documented assessment. Patient and/or family updated on plan of care and expected duration. Pain level reassessed. Patient is alert, oriented x 3, equal unlabored respirations, skin warm/dry/pink. 20:35 Reassessment: Patient appears in no apparent distress at this time. No changes from km8 previously documented assessment. Patient and/or family updated on plan of care and expected duration. Pain level reassessed. Patient is alert, oriented x 3, equal unlabored respirations, skin warm/dry/pink. Vital Signs: 17:54 BP 165 / 94; Pulse 79; Resp 18; Temp 97.9; Pulse Ox 100% ; Weight 79.38 kg; Height 5 cm10 ft. 10 in. ; Pain 8/10; 18:45 BP 160 / 85; Pulse 59; Resp 18; Pulse Ox 99% on R/A; ph 19:45 BP 149 / 75; Pulse 60; Resp 18; Pulse Ox 96% on R/A; km8 21:18 BP 145 / 73; Pulse 62; Resp 16; Pulse Ox 99% ; bp 17:54 Body Mass Index 25.11 (79.38 kg, 177.8 cm) cm10 17:54 Pain Scale: Adult cm10 ED Course: 17:47 Patient arrived in ED. ts1 17:50 Jonah Montes PA is PHCP. cp 17:50 Jonah Thompson MD is Attending Physician. cp 17:55 Triage completed. cm10 17:56 Arm band placed on Patient placed in an exam room, on a stretcher. cm10 18:08 Justo Magallanes, ASHVIN is Primary Nurse. bp 18:11 XRAY Chest (1 view) In Process Unspecified. EDMS 18:35 Initial lab(s) drawn, by me, sent to lab. EKG done, by ED staff, reviewed by Jonah JENNINGS Strep swab sent to lab. Inserted saline lock: 20 gauge in right antecubital area, using aseptic technique. Blood collected. 18:44 Patient has correct armband on for positive identification. Bed in low position. Call ph light in reach. Side rails up X 1. Pulse ox on. NIBP on. Door closed. Noise minimized. 18:45 Strep Sent. ph 18:45 [place] Screen Profile Sent. ph 18:46 Basic Metabolic Panel Sent. ph 18:46 CBC with Diff Sent. ph 18:46 Magnesium Sent. ph 18:46 Troponin HS Sent. ph 19:[address] via wheelchair. km8 19:31 CT Soft Tissue Neck W/contr In Process Unspecified. EDMS 21:19 No provider procedures requiring assistance completed. IV discontinued, intact, bp bleeding controlled, No redness/swelling at site. Pressure dressing applied. Administered Medications: 18:45 Drug: morphine IVP or IV 4 mg IVP once over 4 mins Route: IVP; Infused Over: 4 mins; ph Site: right antecubital; 18:45 Drug: Ondansetron IVP 4 mg IVP once; over 2 minutes Route: IVP; Site: right antecubital;ph 19:54 Drug: Methocarbamol IVPB 1 grams IVPB once over 1 hrs; (mix in NS 100 mL) Route: IVPB; bp Infused Over: 1 hrs; Site: right antecubital; 20:31 Drug: Ketorolac IVP 15 mg IVP once Route: IVP; Site: right forearm; bp 20:31 Drug: Decadron - Dexamethasone IVP 10 mg IVP once Route: IVP; Site: right forearm; bp Medication: 18:44 VIS not applicable for this client. ph Outcome: 21:14 Discharge ordered by MD. cp 21:19 Discharged to home ambulatory, with family, bp 21:19 Condition: stable 21:19 Discharge instructions given to patient, Instructed on discharge instructions, follow up and referral plans. Demonstrated understanding of instructions, follow-up care, 21:19 Patient left the ED. bp Signatures: Dispatcher [employer] EDMS Marlene Recio RN RN ph Jonah Montes, MICHAELA PA cp Justo Magallanes RN RN bp Iqra Morris PAS PAS ts1 Chari Hennessy RN RN cm10 Yanna Rojas RN RN km8 Corrections: (The following items were deleted from the chart) 17:55 17:54 Chief complaint: Patient states: Neck pain that is worse on the right side onset cm10 3 days ago. Pt states that he was sent from urgent care. cm10
[2023-11-13 21:44] VITALS: BP 145/73; TEMP 97.9; O2SAT 99
--- NOTE | 2023-11-15 14:10 | EKG ---
Test Date: 2023-11-13 Test Time: 18:39:06 [place] [employer] Clerk: PH MEASUREMENT RESULTS: Intervals: Rate: 61 KS: 192 QRSD: 78 QT: 472 QTc: 475 [place]: P: KS: 192 QRS: -2 T: 36 INTERPRETIVE STATEMENTS: Atrial-paced rhythm Septal infarct, age undetermined Abnormal ECG Compared to ECG 08/30/2022 17:09:00 Myocardial infarct finding now present Sinus rhythm no longer present Electronically Signed On 11-15-23 14:05:30 CDT by Dioni Chowdary
== END 2023-11-13 21:19 | disposition home or self-care (01) ==
LOC: ER 17:46
DX: B27.90 Infectious mononucleosis, unspecified without complication (principal)
CPT/HCPCS: 93005; 87070; 85025; 80048; 36415; 83735; 86308; 87081; 84484; 70491; 71045; 99285; Q9967; J1100; J2405; J2800